=== PATIENT | male | born 1965 | race Caucasian/White ===

== ENCOUNTER 2019-09-18 13:15 | Emergency (ER) | payer BC, SELFPAY ==
--- NOTE | ~2019-09-18 | CT_ITS ---
EXAMINATION: CT brain wo con, CT cervical spine wo con EXAM DATE: 09/18/2019 14:22 INDICATION: Fall, head injury, left-sided TECHNIQUE: Spiral CT of the head was performed without contrast. Axial, coronal and sagittal images were reviewed. Spiral CT of the cervical spine was performed without contrast. Axial images were rev iewed. Coronal and sagittal reformatted images were also reviewed. The dose-length product (DLP) fo r this examination was 605.33 (accession [id number]), 463.61 (accession [id number]) mGy-cm. The exposure was tailored according to patient size, and iterative reconstruction (ASIR) was used as additional dose reduction technique. There is no prior study for comparison. FINDINGS: HEAD CT: There is no acute intraparenchymal hemorrhage. No evidence of intraparenchymal brain mass l esion. No evidence of acute infarction. There is no mass effect or midline shift. There is no obstru ctive hydrocephalus suspected. There are no extra-axial collections. There are no acute calvarial f ractures. The orbits are unremarkable. Soft tissue is unremarkable. The visualized sinuses and mas toid air cells are well aerated. CERVICAL CT: Straightening of normal cervical lordosis could be positional or spasm. There is no evid ence of acute cervical fracture. The odontoid process is intact. Pre-dens space is normal. Prevert ebral soft tissue is normal. There are no soft tissue abnormalities identified. There is no disc sp marcello widening or traumatic vertebral body subluxation suspected. Mild cervical disc disease. There is moderate right C2-3 facet arthropathy and neural foraminal stenosis. Otherwise relatively mild arthr opathy. A detailed level by level evaluation of spondylosis can be added as addendum if requested. IMPRESSION: 1. No acute intracranial or cervical findings. Reviewed, dictated and finalized at location A. TRONIC DRAFTER IMPRESSION: 1. No acute intracranial or cervical findings.
[2019-09-18 13:32] VITALS: BP 153/80; PULSE 74; RESP 18; TEMP 36.3; O2SAT 99
--- NOTE | 2019-09-18 14:00 | ED.FALL ---
HPI - Fall General Chief Complaint: Fall Stated Complaint: headache Time Seen by Provider: 09/18/19 13:55 Source: patient and RN notes reviewed Mode of arrival: other Limitations: no limitations History of Present Illness HPI Narrative: Pt is a 53 y/o male who presents to the ED with c/o a fall that occurred Tuesday (09/14/19) night. Pt states that he slipped on his tile floor. Pt reports a posterior head injury. Pt denies syncope. He states that he fell asleep after his fall and that his monitored him while he was sleeping. Pt also reports a headache that began yesterday, blurred vision, and neck soreness pain, but denies increased weakness, and SOB. Pt denies taking any anticoagulants. complaint: fall Onset (ago): day(s) (4) Fall from: standing Place fall occurred: home Loss of consciousness: none Prolonged down time: no Symptoms prior to fall: none Context: tripped/slipped Location of injury: head Associated symptoms (after fall): headache (that began yesterday), neck pain (soreness) and other (blurred vision) Related Data Home Medications Medication Instructions Recorded Confirmed montelukast 10 mg tablet 10 mg PO DAILY 07/13/19 07/13/19 pantoprazole 40 mg tablet,delayed 40 mg PO DAILY tablet 07/13/19 07/13/19 release prednisone 5 mg tablet 5 mg PO DAILY 07/13/19 07/13/19 pyridostigmine bromide 60 mg tablet 60 mg PO QID 07/13/19 07/13/19 rosuvastatin 20 mg tablet 20 mg PO DAILY 07/13/19 07/13/19 Allergies Allergy/AdvReac Type Severity Reaction Status Date / Time No Known Allergies Allergy Verified 07/13/19 14:29 Review of Systems Review of Systems: All systems reviewed & are unremarkable except as noted in HPI and below Eyes: Eyes: Reports change in vision (blurred vision) Respiratory: Respiratory: Denies dyspnea Musculoskeletal: Musculoskeletal: Reports neck pain (soreness) Neurologic: Denies syncope, Reports headache(s) (that began yesterday) and Denies weakness (increased) [facility] Past Medical History Medical History (Updated 09/18/19 @ 14:48 by Herminia Cramer MD) Diverticulosis GERD (gastroesophageal reflux disease) GI bleed Headache, migraine History of rectal polyps Hyperlipidemia Hypertension Myasthenia gravis Pneumonia Surgical History Surgical History (Updated 09/18/19 @ 14:25 by Merly Phillips) H/O colonoscopy removing rectal polyps H/O right knee surgery History of elbow surgery History of surgery on right wrist History of thymectomy Family History Family History (Updated 07/13/19 @ 14:04 by Milagros Pavon [facility]) Father Rheumatoid arthritis Heart disease Mother Hypertension Heart disease Social History Social History (Updated 09/18/19 @ 14:25 by Merly Phillips) Smoking status: Former smoker Tobacco type: cigarettes Alcohol intake: current Exam Narrative: Exam Narrative: GENERAL: Well-appearing, well-nourished, and in no acute distress. HEAD: Normocephalic, left parietal scalp hematoma EYES: PERRLA and EOMI, conjunctiva clear without discharge THROAT:Mucous membranes moist, Oropharynx normal without erythema, exudate, peritonsillar swelling or fluctuance NECK: Supple, without lymphadenopathy or mass, midline tenderness cervical spine RESPIRATORY: No respiratory distress, Airway patent, Respirations non-labored, EXTREMITIES: No edema, normal strength with full range of motion. SKIN: Warm, dry, normal color without rash NEURO: Alert and oriented x3. CN 2-12 grossly intact. No focal deficits. PSYCH: Normal mood and affect. Course Vital Signs Vital signs: Vital Signs Temperature 97.4 F L 09/18/19 13:32 Pulse Rate 74 09/18/19 13:32 Respiratory Rate 18 09/18/19 13:32 Blood Pressure 153/80 H 09/18/19 13:32 Pulse Oximetry 99 09/18/19 13:32 Temperature 99.4 F 09/18/19 14:56 Pulse Rate 78 09/18/19 14:56 Respiratory Rate 09/18/19 14:56 Blood Pressure 147/94 H 09/18/19 14:56 Pulse Ox
[2019-09-18 14:56] VITALS: BP 147/94; PULSE 78; RESP 20; TEMP 37.4; O2SAT 95
== END 2019-09-18 14:57 | disposition home or self-care (01) ==
PROVIDERS: Emergency Provider General Practice; PCP Internal Medicine
DX: S06.0X0A Concussion without loss of consciousness, initial encounter (principal); K57.90 Diverticulosis of intestine, part unspecified, without perforation or abscess without bleeding; K21.9 Gastro-esophageal reflux disease without esophagitis; I10 Essential (primary) hypertension
CPT/HCPCS: 70450; 72125; 99284

== ENCOUNTER 2020-07-26 09:31 | Emergency (ER) | payer BC, SELFPAY ==
--- NOTE | ~2020-07-26 | XR_ITS ---
EXAMINATION: XR ribs LT 2V w CXR 2V EXAM DATE: 07/26/2020 11:02 INDICATION: Left lateral rib pain, fall one day ago. Bruising mid back. Initial encounter. TECHNIQUE: Frontal projection of the upper left ribs, frontal projection of the lower left ribs, obli que projection of the left ribs, frontal and lateral chest x-ray(s) for interpretation. Comparison is made to prior examination from 04/26/2019. FINDINGS: There is age indeterminate nondisplaced fracture suspected at the left 6th rib anteriorly. This finding has been indicated, marked on the examination for review, clinical correlation no other suspicious findings.. Sternotomy wires are present without findings to suggest sternal dehiscence. No confluent consolidation, pneumothorax or pleural effusion suspected. IMPRESSION: Probable nondisplaced left 6th rib fracture, age indeterminate. This is anterior aspect, and reportedly patient symptoms or posterior. Please clinically correlate. Reviewed, dictated and finalized at location A. P LAB TECHNICIAN IMPRESSION: Probable nondisplaced left 6th rib fracture, age indeterminate. Thi s is anterior aspect, and reportedly patient symptoms or posterior. Please clin ically correlate.
[2020-07-26 09:37] VITALS: BP 132/77; PULSE 80; RESP 18; TEMP 36.7; O2SAT 96
--- NOTE | 2020-07-26 10:36 | ED.FALL ---
HPI - Fall General Chief Complaint: Fall <Latisha Lucas PA-C - Last Filed: 07/26/20 12:09> Stated Complaint: left rib cage pain <LIBBY Golden Last Filed: 07/26/20 12:09> Time Seen by Provider: 07/26/20 10:12 <LIBBY Golden Last Filed: 07/26/20 12:09> Source: patient <LIBBY Golden Last Filed: 07/26/20 12:09> Mode of arrival: ambulatory <LIBBY Golden Last Filed: 07/26/20 12:09> Limitations: no limitations <LIBBY Golden Last Filed: 07/26/20 12:09> History of Present Illness HPI Narrative: This is a 54-year-old male that presents the emergency department after a fall last night with rib pain. Reports he slipped in the shower. Reports hitting his left side on the tub. Reports since he has had rib pain that is worse with movement and deep breathing. Denies hitting his head, loss of consciousness, other injuries, weakness, or numbness. <LIBBY Golden Last Filed: 07/26/20 12:09> Related Data Home Medications: Home Medications Medication Instructions Recorded Confirmed prednisone 5 mg tablet 5 mg PO DAILY 07/13/19 04/08/20 pyridostigmine bromide 60 mg tablet 60 mg PO QID 07/13/19 04/08/20 rosuvastatin 20 mg tablet 20 mg PO DAILY 07/13/19 04/08/20 aspirin 81 mg tablet,delayed 81 mg PO DAILY 04/08/20 04/08/20 release ticagrelor [Brilinta] mg 07/26/20 07/26/20 <ILBBY Golden Last Filed: 07/26/20 12:09> Allergies/Adverse Reactions: Allergies Allergy/AdvReac Type Severity Reaction Status Date / Time No Known Allergies Allergy Verified 07/26/20 09:41 <LIBBY Golden Last Filed: 07/26/20 12:09> Review of Systems Review of Systems: Narrative: CONSTITUTIONAL: Denies fever CARDIOVASCULAR: Reports chest/rib pain RESPIRATORY: Denies dyspnea. MUSCULOSKELETAL: Reports back pain, joint pain, and myalgia. NEUROLOGIC: Denies numbness, or weakness. <Latisha Lucas PA-C - Last Filed: 07/26/20 12:09> All systems reviewed & are unremarkable except as noted in HPI and below <Latisha Lucas PA-C - Last Filed: 07/26/20 12:09> PMFSH Past Medical History Medical History: Medical History (Updated 07/26/20 @ 12:07 by Latisha Lucas PA-C) Diverticulosis GERD (gastroesophageal reflux disease) GI bleed Headache, migraine History of rectal polyps Hyperlipidemia Hypertension Myasthenia gravis Pneumonia <Latisha Lucas PA-C - Last Filed: 07/26/20 12:09> Surgical History Surgical History: Surgical History (Updated 09/18/19 @ 14:25 by Merly Phillips) H/O colonoscopy removing rectal polyps H/O right knee surgery History of elbow surgery History of surgery on right wrist History of thymectomy <Latisha Lucas PA-C - Last Filed: 07/26/20 12:09> Family History Family History: Family History (Updated 07/13/19 @ 14:04 by Milagros Pavon [facility]) Father Rheumatoid arthritis Heart disease Mother Hypertension Heart disease <Latisha Lucas PA-C - Last Filed: 07/26/20 12:09> Social History Social History: Social History (Updated 09/18/19 @ 14:25 by Merly Phillips) Smoking status: Former smoker Tobacco type: cigarettes Alcohol intake: current <Latisha Lucas PA-C - Last Filed: 07/26/20 12:09> Exam Narrative: Exam Narrative: GENERAL: Well-appearing, well-nourished, and in no acute distress. HEAD: Normocephalic, atraumatic. EYES: PERRLA and EOMI. ENT: Nares clear, no rhinorrhea or epistaxis. Mucous membranes moist. Oropharynx without tonsillar hypertrophy exudate or other lesions. NECK: Supple. No adenopathy or masses. No midline cervical spine tenderness CHEST: Clear to auscultation. No respiratory distress. No wheezes rales or rhonchi. Tender to palpation of the left lateral, lower chest wall HEART: Regular rate and rhythm. No murmur heard. Normal peripheral pulses. BACK: No midline thoracic or lumbar spine tenderness EXTREMITIES
[2020-07-26] MEDS: HYDROcodone/acetaminophen (*CRX) 5-325 MG TABLET 1 TAB PO (10:39)
[2020-07-26 11:09] VITALS: TEMP 36.7
== END 2020-07-26 13:10 | disposition home or self-care (01) ==
PROVIDERS: Emergency Provider General Practice; PCP Internal Medicine
DX: S22.32XA Fracture of one rib, left side, initial encounter for closed fracture (principal); K21.9 Gastro-esophageal reflux disease without esophagitis; Z87.19 Personal history of other diseases of the digestive system; G70.00 Myasthenia gravis without (acute) exacerbation; I10 Essential (primary) hypertension; E78.5 Hyperlipidemia, unspecified; Z87.891 Personal history of nicotine dependence; W18.2XXA Fall in (into) shower or empty bathtub, initial encounter
CPT/HCPCS: 71046; 71100; 99283; A9270

== ENCOUNTER 2022-07-02 01:03 | Day surgery (SDC) | payer BC, SELFPAY ==
[2022-06-16 13:45] VITALS: BMI 31.4
[2022-07-02 08:00] VITALS: BP 138/89; PULSE 51; RESP 18; TEMP 36.3; O2SAT 98
[2022-07-02] MEDS: LACTATED RINGERS 1,000 ML 150 ML IV CONT (08:10)
--- NOTE | 2022-07-02 08:27 | PM.HPGS ---
History of Present Illness History of Present Illness Consent: Risks, benefits, and alternatives have been discussed and questions answered. Patient agrees to proceed with procedure. Chief complaint: neoplasm screening, hx colon polyps Narrative: Isidro Pierson is a 56 year old male Presents for screening colonoscopy. Patient has a history of a tubulovillous adenoma removed from the colon in 2017. Patient reports his current weight appetite and bowel movements are normal. Patient denies abdominal pain. She has had no bleeding. Family history is noncontributory. Review of Systems Review of Systems: Review of systems noncontributory. [facility] Past Medical History Medical History (Updated 07/02/22 @ 08:28 by Paras Tomas MD) Diverticulosis GERD (gastroesophageal reflux disease) GI bleed Headache, migraine History of rectal polyps Hyperlipidemia Hypertension Myasthenia gravis Pneumonia Surgical History Surgical History (Updated 09/18/19 @ 14:25 by Merly Phillips) H/O colonoscopy removing rectal polyps H/O right knee surgery History of elbow surgery History of surgery on right wrist History of thymectomy Family History Family History (Updated 07/13/19 @ 14:04 by Milagros Pavon [employer]) Father Rheumatoid arthritis Heart disease Mother Hypertension Heart disease Social History Social History (Updated 09/18/19 @ 14:25 by Merly Phillips) Smoking status: Former smoker Tobacco type: cigarettes Alcohol intake: current Drinks per week: 15 Substance use type: does not use Living arrangements: with family Spiritual care concerns: No Meds Home Medications and Allergies Home Medications Medication Instructions Recorded Confirmed Type prednisone 5 mg tablet 5 mg PO DAILY 07/13/19 06/16/22 History pyridostigmine bromide 60 mg tablet 60 mg PO TID 07/13/19 06/16/22 History lisinopril 10 mg tablet 10 mg PO DAILY #90 tabs 03/07/20 06/16/22 Rx aspirin 81 mg tablet,delayed 81 mg PO DAILY 04/08/20 06/16/22 History release (Adult Aspirin Regimen) sodium,potassium,mag sulfates 17.5 See Rx Instructions PO .COMPLEX 05/11/22 Rx gram-3.13 gram-1.6 gram oral soln #354 mL (Suprep Bowel Prep Kit) atenolol 25 mg tablet 25 mg PO DAILY 06/16/22 07/02/22 History azathioprine 50 mg tablet 50 mg PO DAILY 06/16/22 06/16/22 History montelukast 10 mg tablet 10 mg PO DAILY 06/16/22 06/16/22 History nitroglycerin 0.4 mg sublingual 0.4 mg sublingual PRN PRN Chest 06/16/22 06/16/22 History tablet Pain rosuvastatin 40 mg tablet 40 mg PO DAILY 06/16/22 06/16/22 History Allergies Allergy/AdvReac Type Severity Reaction Status Date / Time No Known Allergies Allergy Verified 07/02/22 07:59 Vital Signs Vital Signs - 24 hr 07/02/22 08:00 Temperature 97.3 F L Pulse Rate 51 L Respiratory Rate 18 Blood Pressure 138/89 Pulse Oximetry 98 Oxygen Delivery Room Air Exam Narrative: Physical exam reveals patient to be alert. Vital signs stable. HEENT exam is unremarkable. Patient is anicteric. Lungs are clear to auscultation and percussion. Heart is without murmur or extra sounds. Abdomen bowel sounds present soft nontender with no organomegaly. Digital external rectal exam is normal. Assessment and Plan Assessment and plan (1) History of colon polyps: Code(s): Z86.010 - Personal history of colonic polyps Status: Acute Assessment and Plan: Patient has a history of a tubulovillous adenomatous colon polyp removed from the colon 2016. Plan for surveillance colonoscopy at this time. Consider follow-up colonoscopy at 5 year intervals in the future. Further recommendations may be given after endoscopy.
--- NOTE | 2022-07-02 08:29 | WPDANESEPPF ---
Anes - Initial Pre Proc Eval Procedure: Operation Date: 07/02/22 09:00 Proposed Procedures p Screening Colonoscopy - Paras Tomas MD Date/Time: 07/02/22 08:29 Surgeon: Paras Tomas MD Pre Op Diagnosis: neoplasm screening, hx colon polyps Patient Data Age: 56 Gender: M Height: 1.7 m Weight: 90.9 kg Last Vital Signs Temp 36.3 C L 07/02/22 08:00 Pulse 51 L 07/02/22 08:00 Resp 18 07/02/22 08:00 BP 138/89 07/02/22 08:00 Pulse Ox 98 07/02/22 08:00 O2 Del Method Room Air 07/02/22 08:00 Allergies Allergy/AdvReac Type Severity Reaction Status Date / Time No Known Allergies Allergy Verified 07/02/22 07:59 Home Medications Medication Instructions Recorded Confirmed Type prednisone 5 mg tablet 5 mg PO DAILY 07/13/19 06/16/22 History pyridostigmine bromide 60 mg tablet 60 mg PO TID 07/13/19 06/16/22 History lisinopril 10 mg tablet 10 mg PO DAILY #90 tabs 03/07/20 06/16/22 Rx aspirin 81 mg tablet,delayed 81 mg PO DAILY 04/08/20 06/16/22 History release (Adult Aspirin Regimen) sodium,potassium,mag sulfates 17.5 See Rx Instructions PO .COMPLEX 05/11/22 Rx gram-3.13 gram-1.6 gram oral soln #354 mL (Suprep Bowel Prep Kit) atenolol 25 mg tablet 25 mg PO DAILY 06/16/22 07/02/22 History azathioprine 50 mg tablet 50 mg PO DAILY 06/16/22 06/16/22 History montelukast 10 mg tablet 10 mg PO DAILY 06/16/22 06/16/22 History nitroglycerin 0.4 mg sublingual 0.4 mg sublingual PRN PRN Chest 06/16/22 06/16/22 History tablet Pain rosuvastatin 40 mg tablet 40 mg PO DAILY 06/16/22 06/16/22 History Patient hx anesthesia problems: none Family hx anesthesia problems: none Results Review: All pre-operative results and documents have been reviewed as part of the pre-operative evaluation. [facility] Past Medical History Medical History Diverticulosis GERD (gastroesophageal reflux disease) GI bleed Headache, migraine History of rectal polyps Hyperlipidemia Hypertension Myasthenia gravis Pneumonia Surgical History Surgical History H/O colonoscopy removing rectal polyps H/O right knee surgery History of elbow surgery History of surgery on right wrist History of thymectomy Family History Family History Father Rheumatoid arthritis Heart disease Mother Hypertension Heart disease Social History Social History Smoking status: Former smoker Tobacco type: cigarettes Alcohol intake: current Drinks per week: 15 Substance use type: does not use Living arrangements: with family Spiritual care concerns: No Anes - Eval Final PreProcedure Day of Procedure 07/02/22 08:29 Patient weight: obese Heart: regular rate and rhythm Lungs: clear to auscultation Airway: Mallampati scale class II Neurological: alert and oriented Last oral intake: >/= 8 hours ASA classification: III Emergent: no Anesthetic plan: proceed Anesthesia type and monitoring: general GIVS and standard monitoring Results Review: All pre-operative results and documents have been reviewed as part of the pre-operative evaluation. Informed Consent: The patient's anesthetic plan and its attendant risks and benefits were discussed with the patient/family/POA. Questions were solicited and answers provided to the satisfaction of the patient/family/POA.
[2022-07-02 09:21] VITALS: BP 117/93; PULSE 51; RESP 17; O2SAT 99
[2022-07-02 09:31] VITALS: BP 123/77; PULSE 54; RESP 18; O2SAT 98
[2022-07-02 09:41] VITALS: BP 128/90; PULSE 60; RESP 20; O2SAT 97
== END 2022-07-02 09:55 | disposition home or self-care (01) ==
PROVIDERS: PCP Internal Medicine; Visit Provider Internal Medicine Gastroenterology
PROC: 0DJD8ZZ Inspection of Lower Intestinal Tract, Via Natural or Artificial Opening Endoscopic (ICD-10-PCS; CPT 45378; principal; 2022-07-02 09:00)
DX: Z12.11 Encounter for screening for malignant neoplasm of colon (principal); K64.8 Other hemorrhoids; K57.30 Diverticulosis of large intestine without perforation or abscess without bleeding; Z86.010 Personal history of colon polyps; I10 Essential (primary) hypertension; E78.5 Hyperlipidemia, unspecified; K21.9 Gastro-esophageal reflux disease without esophagitis; Z79.82 Long term (current) use of aspirin; Z87.891 Personal history of nicotine dependence; E66.9 Obesity, unspecified; Z68.31 Body mass index [BMI] 31.0-31.9, adult
CPT/HCPCS: 45378; J2704; J7120

== ENCOUNTER 2024-12-04 07:19 | Observation (INO) | payer BC, SELFPAY ==
[2024-12-04] VITALS (25 sets, daily range): BP systolic 82–128; BP diastolic 56–84; PULSE 49–71; RESP 11–96; TEMP 36–36.9; O2SAT 95–100; BMI 33.0; BMI 32.0
--- NOTE | ~2024-12-04 | CT_ITS ---
CT of the Abdomen and Pelvis: Indication: Hematuria Technique: 2.5 mm axial scans were obtained through the abdomen and pelvis prior to and following in travenous administration of 130 cc of Omnipaque 350. Dose reduction technique was used on this scan b y utilizing automated exposure control and iterative reconstruction technique. The dose-length produc t (DLP) was 1791.96 mGy-cm. Findings: Scans through the lung bases are unremarkable. The liver, spleen, pancreas, gallbladder, and adrenal glands are within normal limits. Probable punct ate nonobstructing left renal stone. Bilateral renal cysts are present. No evidence of aortic aneurys m. No lymphadenopathy. No bowel obstruction or bowel wall thickening. There is no evidence to suggest acute appendicitis. Images through the pelvis were performed. There is a 10.1 x 6.5 cm mobile mass within the bladder lum en, mildly hyperdense, most likely a large hematoma/blood clot. Prostate gland unremarkable. No ascit es. Impression: 10.1 x 6.5 cm probable blood clot/hematoma within the bladder lumen, mobile. Precise cause/source of this hematoma is unclear. Probable punctate nonobstructing left renal stone. Reviewed, dictated and finalized at location M. Impression: 10.1 x 6.5 cm probable blood clot/hematoma within the bladder lumen, mobile. Pr ecise cause/source of this hematoma is unclear. Probable punctate nonobstructing left renal stone.
--- OUTSIDE RECORDS SUMMARY | 2024-12-04 07:28 | XMS_ITS | Continuity of Care Document ---
Author Organization [facility] Address [address] [place] [address] Phone Care Team Providers Care Assessor Name Role Phone Huseyin Gilbert Unavailable Unavailable Procedures Procedure Date Eye Exam Established Pt Remove Foreign Body From Eye Office/outpatient Visit, Est Remove Foreign Body From Eye Advance Directives Directive Yes / No Effective Date File Name No Information Encounters Encounter Description Practice Location Reason(s) For Visit Diagnoses Date Provider Providers Copied on Encounter [facility], [address] [place] [address] [address], [place], [place], [id number], [place] tel:[phone] [facility] No Information 0 Ofelia Fontanez. [address] [place], [address], . tel:[phone] Referring Provider: Huseyin Howard, [address] [place], [place], [facility]. tel:[phone] [facility], [address], [place], [place], [id number], [place] tel:[phone] [facility] No Information 0 Val San. [address], [place], [address], [place]. tel:[phone] Office/outpat ient Visit, Est [facility], [address], [place], [place], [id number], [place] tel:[phone] [facility] No Information May-0 7-200 7 Fabio Huerta. [address], [place], [place], [id number], [place]. tel:[phone] [facility], [address], [place], [place], [id number], [place] tel:[phone] [facility] No Information May-0 1-200 7 Val San. [address], [place], [address], [place]. tel:[phone] Referring Provider: Tee Marcano MD, [address] [facility] [address], [place], [address]. tel:[phone] Family History Family Member Type Diagnosis Age At Onset No Information Payers Payer name Insurance type Covered libertarian ID Authoriza tion(s) No Information Social History Type Description Quantity Date Captured Comments Sex Male Smoking Status No Information Chief Complaint And Reason For Visit No Information Reason For Referral Reason For Referral No Information History Of Present Illness Encounter Date Complaint History Of Prese nt Illness No Information Functional Status Date Functional Assessmen t No Information Instructions Date Instruction Additional Infor mation No Information Assessments Type Assessment Date No Information Patient Care Teams Name Effective Dates (start - stop) Status Members No Information
--- OUTSIDE RECORDS SUMMARY | 2024-12-04 07:28 | XMS_ITS | Clinical Summary ---
Author Organization [facility] [address] Address [address] [place] [address] Care Team Providers Care Report Analyst Name Role Phone Franklin Lester MD Unavailable [phone] Higinio Billy MD Primary Care Provider [phone] Allergies No known active allergies Medications predniSONE (DELTASONE) 5 mg tablet Take 10 tablets (50 mg) by mouth daily 0 Active pyridostigmine (MESTINON) 60 mg tablet 4 (four) times a day Active aspirin 81 mg enteric coated tablet Take 1 tablet (81 mg total) by mouth daily Active fluticasone propionate (FLONASE) 50 mcg/actuation nasal spray Administer 2 sprays into each nostril daily 3 each 4 3 Active calcium carbonate 500 mg calcium (1,250 mg) capsule Take by mouth daily Active icosapent ethyL (VASCEPA) 1 gram capsule Take 2 capsules (2 g total) by mouth 2 (two) times a day 120 capsule 11 4 025 Active immune globulin (Gamunex-C) infusion Infuse 917 mL (91.7 g total) into a venous catheter 4 Active montelukast (SINGULAIR) 10 mg tablet Take 1 tablet (10 mg total) by mouth daily 90 tablet 3 4 025 Active rosuvastatin (CRESTOR) 40 mg tabletIndications: Essential hypertension,[place]on [place]win artery disease involving [place] coronary artery of [place] heart without angina pectoris,Mixed hyperlipidemia TAKE 1 TABLET BY MOUTH EVERY DAY 90 tablet 1 5 Active atenoloL (TENORMIN) 25 mg tabletIndications: Essential hypertension,[place]on [place] artery disease involving [place] coronary artery of [place] heart without angina pectoris,Mixed hyperlipidemia TAKE 1 TABLET (25 MG TOTAL) BY MOUTH DAILY. 90 tablet 1 5 Active lisinopriL (PRINIVIL,ZESTRIL) 10 mg tabletIndications: Essential hypertension,[place]on [place] artery disease involving [place] coronary artery of [place] heart without angina pectoris,Mixed hyperlipidemia TAKE 1 TABLET BY MOUTH EVERY DAY 90 tablet 1 5 Active Active Problems Problem Noted Date Diagnosed Date Screening for diabetes mellitus 07/13/2024 Screening for malignant neoplasm of prostate Screening for thyroid disorder 07/13/2024 Class 1 obesity with serious comorbidity and body mass index (BMI) of 32.0 to 32.9 in adult 07/13/2024 Assessment & Plan (07/13/2024 4:09 PM DROP WIRE HANGER): BMI 32.60. Discussed need for healthy diet, routine exercise and weight loss Class 1 obesity due to exces s calories without serious comorbidity with body mass index (BMI) of 33.0 to 33.9 in adult 07/12/2023 Assessment & Plan (01/11/2024 2:57 PM CDT): Stable, improving; patient had some Suboxone weight due to increased dose of prednisone Patient now back down to prednisone 5 mg daily; continues to work on weight loss Assessment & Plan (07/12/2023 1:36 PM DROP WIRE HANGER): Patient continues to gain weight; limited ability exercise due to myasthenia gravis, limiting as energy levels in the evening Patient on chronic prednisone for myasthenia gravis Will start semaglutide 0.25 mg to help with weight control Nausea, vomiting, and diarrhea 01/18/2023 Assessment & Plan (01/18/2023 11:23 AM CDT): Nine history of abdominal pain and N/V/D Obtain x-ray at [facility]-will call with results Myasthenia gravis 01/03/2023 Assessment & Plan (01/11/2024 2:57 PM CDT): Stable, well controlled; has taper down to 5 mg prednisone daily; pyridostigmine 60 mg q.i.d.; continue to monitor Patient reports worsening symptoms associated with feet, tries to stay in air conditioning as much as possible Assessment & Plan (10/05/2023 12:35 PM DROP WIRE HANGER): Had episode of weakness and collapse, improvement with methylprednisone Symptoms are now improving after fall Continue pyridostigmine 60 mg q.i.d., can taper down stabilizes Assessment & Plan (07/12/2023 1:36 PM DROP WIRE HANGER): Stable, generally well controlled, the patient does report he had recent flare over the summer requiring higher doses of prednisone Follows with Neurology for management Continue pyridostigmine 60 mg t.i.d., prednisone 15 mg daily Assessment & Plan (01/03/2023 3:10 PM CDT): Stable, generally well controlled, follows with Dr. Rogers Symptoms are worsening stream hot or cold Continue prednisone 5 mg daily, pyridostigmine 60 mg t.i.d. Non-seasonal allergic rhinitis due to pollen 11/2022 Assessment & Plan (07/13/2024 4:15 PM DROP WIRE HANGER): Continue use of fluticasone. Assessment & Plan (01/03/2023 3:10 PM CDT): Stable, generally well controlled; continue Singulair 10 mg daily, Benadryl p.r.n. Flonase 2 sprays each nostril nightly H/O heart artery stent 12/09/2022 Mixed hyperlipidemia 12/09/2022 Assessment & Plan (01/03/2023 3:09 PM CDT): Stable, well controlled, follows with Cardiology Continue rosuvastatin 40 mg daily Coronary artery disease 05/29/2020 Assessment & Plan (07/13/2024 4:20 PM DROP WIRE HANGER): Stable. Continue ASA, atenolol, lisinopril, rosuvastatin, and Vascepa. Followed by cardiology. Assessment & Plan (01/11/2024 2:57 PM CDT): Stable, well controlled, continue ASA 81 mg daily, atenolol 25 mg daily, rosuvastatin 40 mg daily Assessment & Plan (10/05/2023 12:35 PM DROP WIRE HANGER): Stable, well controlled; no chest pain or evidence of cardiac enzymes Continue ASA 81 mg daily, atenolol 25 mg daily, lisinopril 10 mg daily, rosuvastatin 40 mg daily Assessment & Plan (07/12/2023 1:35 PM DROP WIRE HANGER): Stable, well controlled; no chest pain headaches, no changes in exercise tolerance outside of changes from myasthenia gravis Continue ASA 81 mg daily, atenolol 25 mg daily, lisinopril 10 mg daily, rosuvastatin 40 mg daily Assessment & Plan (01/03/2023 3:09 PM CDT): Stable, well controlled; stent placed, patient reports no chest pain, dyspnea or peripheral edema continue to monitor closely Follows with Cardiology for management Continue nitroglycerin p.r.n. for chest pain, ASA 81 mg daily Chest pain 05/06/2020 Essential hypertension 05/06/2020 Assessment & Plan (01/11/2024 2:56 PM CDT): Stable, well controlled, blood pressure at goal No chest pain or pressure No orthostatics Continue atenolol 25 mg daily, lisinopril 10 mg daily Assessment & Plan (07/12/2023 1:34 PM DROP WIRE HANGER): Mildly elevated today; though blood pressure generally normal Continue to monitor closely Continue atenolol 25 mg daily, lisinopril 10 mg daily Assessment & Plan (01/03/2023 3:08 PM CDT): Stable, well controlled; blood pressure at target today Continue atenolol 25 mg daily, lisinopril 10 mg daily Dyspnea on exertion 05/06/2020 Degeneration of cervical intervertebral disc 01/201101/03/2023 Assessment & Plan (01/11/2024 2:57 PM CDT): Stable, well controlled; no major issues with neck pain, occasional stiff neck Assessment & Plan (07/12/2023 1:35 PM DROP WIRE HANGER): Generally well controlled, no major issues, has some low back pain and sciatic pain on left side associated with sitting for long durations in chair Encourage use of soft chairs, regular activity during day Resolved Problems Problem Noted Date Diagnosed Date Resolved Date Pure hypercholesterolemia 05/06/2020 Assessment & Plan (01/11/2024 2:56 PM CDT): Stable, well controlled, lipids at goal Continue rosuvastatin 40 mg daily Assessment & Plan (07/12/2023 1:35 PM DROP WIRE HANGER): Stable, well controlled; mildly elevated triglycerides, LDL at goal Continue rosuvastatin 40 mg daily Immunizations Immunization Administration Dates Next Due Influenza, Quadrivalent, Spl it, Preservative Free, Intramuscular 07/13/2022,05/31/2021,05/17/2020,04/26 Influenza, Trivalent, Preser vative Free, Intramuscular 05/17/2024,05/23/2013 Influenza, Unspecified 04/21/2023 Surgical History Surgery Date Site/Laterality Comments TENODESIS BICEPS TENDON AT [facility] THYROIDECTOMY 08/01/1999 - 07/31/2000 N/A HM COLONOSCOPY Medical History Medical History Date Comments Chest pain Diverticulitis Family History Medical History Relation Name Comments Coronary artery disease Father bypass Father Stent Mother Relation Name Status Comments Father Mother Alive Social History Tobacco Use Types Packs/Day Years Used Date Smoking Tobacco: Former Smokeless Tobacco: Never Tobacco Cessation:Counseling Given: Not Answered Alcohol Use Standard Drinks/Week Comments Not Currently 0 (1 standard drink = 0.6 oz pur e alcohol) [facility] Utilities Answer Date Recorded In the past 12 months has [employer], oil, or [employer] threatened to shut off services in your home? No 07/12/2023 Humiliation, Afraid, Rape, and Kick questionnair e Answer Date Recorded Within the last year, have y ou been afraid of your partner or ex-partner? No 07/12/2023 Within the last year, have y ou been humiliated or emotionally abused in other ways by your partner or ex-partner? No Within the last year, have y ou been kicked, hit, slapped, or otherwise physically hurt by your partner or ex-partner? No 07/12/2023 Within the last year, have y ou been raped or forced to have any kind of sexual activity by your partner or ex-partner? No 07/12/2023 Social Connection and Isolat ion Panel [NHANES] Answer Date Recorded In a typical week, how many times do you talk on the phone with family, friends, or neighbors? More than three times a week 07/12/2023 How often do you get togethe r with friends or relatives? More than three times a week 07/12/2023 How often do you attend [facility] or jainism services? Never 07/12/2023 Do you belong to any clubs o r organizations such as latter day groups, unions, fraternal or athletic groups, or school groups? No 07/12/2023 How often do you attend meet ings of the clubs or organizations you belong to? Never 07/12/2023 Are you , , di vorced, , never , or living with a partner? 07/12/2023 AUDIT-C Answer Date Recorded Q1: How often do you have a drink containing alcohol? 4 or more times a week 07/12/2023 Q2: How many drinks containi ng alcohol do you have on a typical day when you are drinking? 1 or 2 3 Q3: How often do you have si x or more drinks on one occasion? Weekly 07/12/2023 Overall Financial Resource Strain (CARDIA) Answe r Date Recorded How hard is it for you to pa y for the very basics like food, housing, medical care, and heating? Not hard at all 07/12/2023 PHQ-2 Answer Date Recorded PHQ-2 Total Score (If total score is 3 or more points, staff should administer the PHQ-9) 0 01/11/2024 [facility] of Occupat ional Health - Occupational Stress Questionnaire Answer Date Recorded Do you feel stress - tense, restless, nervous, or anxious, or unable to sleep at night because your mind is troubled all the time - these days? To some extent 07/12/2023 Exercise Vital Sign Answer Date Recorde d On average, how many days pe r week do you engage in moderate to strenuous exercise (like a brisk walk)? 0 days 07/12/2023 On average, how many minutes do you engage in exercise at this level? 0 min 07/12/2023 Hunger Vital Sign Answer Date Recorded Within the past 12 months, y ou worried that your food would run out before you got the money to buy more. Never true 07/12/20 23 Within the past 12 months, t he food you bought just didn't last and you didn't have money to get more. Never true 07/12/2023 PRAPARE - Transportation Answer Date Re corded In the past 12 months, has l ack of transportation kept you from medical appointments or from getting medications? No 07/01 In the past 12 months, has l ack of transportation kept you from meetings, work, or from getting things needed for daily living? No 07/12/2023 Housing Stability Vital Sign Answer Wilfred e Recorded In the last 12 months, was t here a time when you were not able to pay the mortgage or rent on time? No 07/12/2023 In the last 12 months, how many places have you lived? 1 07/12/2023 In the last 12 months, was t here a time when you did not have a steady place to sleep or slept in a alf (including now)? No 07/12/2023 Sex and Gender Information Value Date Recorded Sex Assigned at Not on file Legal Sex Male 1:56 AM DROP WIRE HANGER Gender Identity Not on file Sexual Orientation Not on file Obstetrics History Last Filed Vital Signs Vital Sign Reading Time Taken Comments Blood Pressure 126/80 07/13/2024 8:25 AM DROP WIRE HANGER Pulse 76 07/13/2024 8:25 AM DROP WIRE HANGER Temperature 36.4 C (97.6 F) 07/13/2024 8:25 AM DROP WIRE HANGER Respiratory Rate 18 01/11/2024 1:57 PM CDT Oxygen Saturation 94% 07/13/2024 8:25 AM DROP WIRE HANGER Inhaled Oxygen Concentration - - Weight 94.4 kg (208 lb 3.2 oz) 07/13/2024 8:25 A M DROP WIRE HANGER Height 170.2 cm (5' 7.01 ) 07/13/2024 8:25 AM CS T Body Mass Index 32.6 07/13/2024 8:25 AM DROP WIRE HANGER Plan of Treatment Health Maintenance Due Date Last Done Comments DTaP/Tdap/Td Vaccine (1 - Tdap) 1976 Regular Well Visit/Exam 18-64 10/11/1983 Pneumococcal vaccine <65 (1 of 2 - PCV) 1984 Covid-19 Vaccine (2023- season) 2024 05/22/2022, 05/31/2021, 10/14/2020, Additional history exists Depression Screening 01/10/2025 01/11/2024, 07/12/2023, 07/12/2023, Additional history exists Zoster Vaccine (1 of 2) 07/13/2025 Post poned from 1984 (Patient declined, but will receive in the future) Prostate Cancer Screening-PSA 07/13/2026 07/13/2024, 07/12/2023 Colon Cancer Screening-Colonoscopy 07/02/2027 07/02/2022 Colon Cancer Screening-CT Colonography Discontinued 07/02/2022 Colon Cancer Screening-DNA Stool Discontinued 07/02/2022 Colon Cancer Screening-FIT Discontinued 07/02/2022 Colon Cancer Screening-Sigmoidoscopy Discontinued 07/02/2022 Hepatitis B Screening Completed 01/12/2024 Hepatitis C Screening Completed 01/12/2024 Influenza Vaccine Completed 05/17/2024, , 07/13/2022, Additional history exists Procedures Procedure Name Priority Date/Time Associated Diagnosis Comments PSA SCREEN Routine 07/13/2024 9:13 AM DROP WIRE HANGER Screening for malignant neoplasm of prostate HEPATITIS C ANTIBODY Routine 01/12/2024 10:00 AM CDT COLONOSCOPY Routine 07/02/2022 from Last 3 Months or Most Recently Relevant to Health Maintenance Results * PSA screen (07/13/2024 9:13 AM DROP WIRE HANGER) PSA-Total 2.82 <=3.90 ng/mL Comment: Interpretive Data AGE SEX REFERENCE INTERVAL 0 minutes-150 years Female None 0 minutes-49 years Male None 50-59 years Male 0-3.90 60-69 years Male 0-5.40 70-79 years Male 0-6.20 80-150 years Male 0-6.20 The Estephania PSA Total assay procedure was used. Results from different manufacturers or methods may not be comparable. Serial testing should be performed using the same method. Current interpretive data last revised 21. Blood 07/13/2024 9:13 AM DROP WIRE HANGER 07/13/2024 2:37 PM DROP WIRE HANGER Yulia Mcguire NP LAB BLOOD ORDERABLES Final Re sult [facility] [address] [place] [address] * Hepatitis C antibody (01/12/2024 10:00 AM CDT) Hep C Ab NON-REACTI VE NON-REACT GAYE [facility] Comment: HCV antibody was non-reactive. There is no laboratory evidence of HCV infection. In most cases, no further action is required. However, if recent HCV exposure is suspected, a test for HCV RNA (test code 78141) is suggested. For additional information please refer to http://education.WaveMAX.Men Rock/faq/ANX51e6 (This link is being provided for informational/ educational purposes only.) 01/12/2024 10:0 0 AM CDT 01/12/2024 10:02 AM CDT Higinio Billy MD LAB MICROBIOLOGY - GENERA L ORDERABLES Final Result [facility] [address] [address] * Colonoscopy (07/02/2022) Anatomical Region Laterality Modality Other us Historical Provider ENDOSCOPY PROCEDURES Asha l Result from Last 3 Months or Most Recently Relevant to Health Maintenance Insurance [employer] [place] [facility] [employer]ER[employer] Care Teams Report Analyst Relationship Specialty Start Date End Date Higinio Billy MD [address] [place] [address] PCP - General Family Medicine 12/09/22 Franklin Lester MD Internal Medicine 05/06/20
--- OUTSIDE RECORDS SUMMARY | 2024-12-04 07:29 | XMS_ITS | Referral Summary ---
Author Organization [facility] [address] Address [address] [place] [address] Care Team Providers Care Yard Switch Operator Name Role Phone Franklin Lester MD Unavailable [phone] Higinio Billy MD Primary Care Provider [phone] Allergies No known active allergies Medications predniSONE [...] tabletIndications: Essential hypertension,Coron [place]win artery disease involving [place] coronary artery of [place] heart without angina pectoris,Mixed hyperlipidemia TAKE 1 TABLET BY MOUTH EVERY DAY 90 tablet 1 5 Active atenoloL (TENORMIN) 25 mg tabletIndications: Essential hypertension,Coron ashwin artery disease involving [place] coronary artery of [place] heart without angina pectoris,Mixed hyperlipidemia TAKE 1 TABLET (25 MG TOTAL) BY MOUTH DAILY. 90 tablet 1 5 Active lisinopriL (PRINIVIL,ZESTRIL) 10 mg tabletIndications: Essential hypertension,Coron ashwin artery disease involving [place] coronary artery of [place] heart without angina pectoris,Mixed hyperlipidemia TAKE 1 [...] 07/13/2024 Assessment & Plan (07/13/2024 4:09 PM REBRANDER): BMI 32.60. Discussed need for healthy diet, [...] loss Assessment & Plan (07/12/2023 1:36 PM REBRANDER): Patient continues to gain weight; limited ability exercise due to myasthenia gravis, limiting as energy levels in the evening Patient on chronic prednisone for myasthenia gravis Will start semaglutide 0.25 mg to help with weight control Nausea, vomiting, and diarrhea 01/18/2023 Assessment & Plan (01/18/2023 11:23 AM CDT): Nine history of abdominal pain and N/V/D Obtain x-ray at [facility]-will call with results Myasthenia gravis 01/03/2023 Assessment & Plan (01/11/2024 2:57 PM CDT): Stable, well controlled; has taper down to 5 mg prednisone daily; pyridostigmine 60 mg q.i.d.; continue to monitor Patient reports worsening symptoms associated with feet, tries to stay in air conditioning as much as possible Assessment & Plan (10/05/2023 12:35 PM REBRANDER): Had episode of weakness and collapse, improvement with methylprednisone Symptoms are now improving after fall Continue pyridostigmine 60 mg q.i.d., can taper down stabilizes Assessment & Plan (07/12/2023 1:36 PM REBRANDER): Stable, generally well controlled, the patient does [...] 11/2022 Assessment & Plan (07/13/2024 4:15 PM REBRANDER): Continue use of fluticasone. Assessment & Plan [...] 05/29/2020 Assessment & Plan (07/13/2024 4:20 PM REBRANDER): Stable. Continue ASA, atenolol, lisinopril, rosuvastatin, and Vascepa. Followed by cardiology. Assessment & Plan (01/11/2024 2:57 PM CDT): Stable, well controlled, continue ASA 81 mg daily, atenolol 25 mg daily, rosuvastatin 40 mg daily Assessment & Plan (10/05/2023 12:35 PM REBRANDER): Stable, well controlled; no chest pain or evidence of cardiac enzymes Continue ASA 81 mg daily, atenolol 25 mg daily, lisinopril 10 mg daily, rosuvastatin 40 mg daily Assessment & Plan (07/12/2023 1:35 PM REBRANDER): Stable, well controlled; no chest pain headaches, [...] daily Assessment & Plan (07/12/2023 1:34 PM REBRANDER): Mildly elevated today; though blood pressure generally [...] neck Assessment & Plan (07/12/2023 1:35 PM REBRANDER): Generally well controlled, no major issues, has [...] daily Assessment & Plan (07/12/2023 1:35 PM REBRANDER): Stable, well controlled; mildly elevated triglycerides, LDL at goal Continue rosuvastatin 40 mg daily Immunizations Immunization Administration Dates Next Due Influenza, Quadrivalent, Spl it, Preservative Free, Intramuscular 07/13/2022,05/31/2021,05/17/2020,04/26 Influenza, Trivalent, Preser vative Free, Intramuscular 05/17/2024,05/23/2013 Influenza, Unspecified 04/21/2023 Social History Tobacco Use Types Packs/Day Years Used Date Smoking Tobacco: Former Smokeless Tobacco: Never Tobacco Cessation:Counseling Given: Not Answered Alcohol Use Standard Drinks/Week Comments Not Currently 0 (1 standard drink = 0.6 oz pur e alcohol) [facility] Utilities Answer Date Recorded In the past 12 months has e [employer]), gas, oil, or water [employer] threatened to shut off services in your [...] week 07/12/2023 How often do you attend chur or presybeterian services? Never 07/12/2023 Do you belong to any clubs o r organizations such as temple groups, unions, fraternal or athletic groups, or [...] staff should administer the PHQ-9) 0 01/11/2024 [facility] of Occupat ional Health - Occupational Stress [...] place to sleep or slept in a nursing home (including now)? No 07/12/2023 Sex and Gender Information Value Date Recorded Sex Assigned at Not on file Legal Sex Male 1:56 AM REBRANDER Gender Identity Not on file Sexual Orientation Not on file Last Filed Vital Signs Vital Sign Reading Time Taken Comments Blood Pressure 126/80 07/13/2024 8:25 AM REBRANDER Pulse 76 07/13/2024 8:25 AM REBRANDER Temperature 36.4 C (97.6 F) 07/13/2024 8:25 AM REBRANDER Respiratory Rate 18 01/11/2024 1:57 PM CDT Oxygen Saturation 94% 07/13/2024 8:25 AM REBRANDER Inhaled Oxygen Concentration - - Weight 94.4 kg (208 lb 3.2 oz) 07/13/2024 8:25 A M REBRANDER Height 170.2 cm (5' 7.01 ) 07/13/2024 8:25 AM CS T Body Mass Index 32.6 07/13/2024 8:25 AM REBRANDER Plan of Treatment Not on file Procedures Procedure Name Priority Date/Time Associated Diagnosis Comments PSA SCREEN Routine 07/13/2024 9:13 AM REBRANDER Screening for malignant neoplasm of prostate HEPATITIS C ANTIBODY Routine 01/12/2024 10:00 AM CDT COLONOSCOPY Routine 07/02/2022 from Last 3 Months or Most Recently Relevant to Health Maintenance Results * PSA screen (07/13/2024 9:13 AM REBRANDER) PSA-Total 2.82 <=3.90 ng/mL Comment: Interpretive Data [...] last revised 21. Blood 07/13/2024 9:13 AM REBRANDER 07/13/2024 2:37 PM REBRANDER us Yulia Mcguire NP LAB BLOOD ORDERABLES Final Re sult [facility] [address] [facility] [place] [address] * Hepatitis C antibody (01/12/2024 10:00 AM CDT) Hep C Ab NON-REACTI VE NON-REACT GAYE [facility] Comment: HCV antibody was non-reactive. There is no laboratory evidence of HCV infection. In most cases, no further action is required. However, if recent HCV exposure is suspected, a test for HCV RNA (test code 67583) is suggested. For additional information please refer to http://education.PlasmaSi/faq/XXN10b0 (This link is being provided for informational/ educational purposes only.) 01/12/2024 10:0 0 AM CDT 01/12/2024 10:02 AM CDT Higinio Billy MD LAB MICROBIOLOGY - GENERA L ORDERABLES Final Result [facility] [address] [place] [address] * Colonoscopy (07/02/2022) Anatomical Region Laterality Modality Other Historical Provider ENDOSCOPY PROCEDURES Asha l Result from Last 3 Months or Most Recently Relevant to Health Maintenance Insurance [facility] FEDERAL Care Teams Yard Switch Operator Relationship Specialty Start Date End Date Higinio Billy MD [address] [place] [address] PCP - General Family Medicine 12/09/22 Franklin Lester MD Internal Medicine 05/06/20
--- OUTSIDE RECORDS SUMMARY | 2024-12-04 07:29 | XMS_ITS | Encounter Summary ---
Author Organization [facility] Address [address] [place] [address] Phone Care Team Providers Care Embossing Machine Tender Name Role Phone Franklin Lester MD Primary Care Provider [phone] Higinio Billy MD Primary Care Provider [phone] Myron Lawson MD Unavailable [phone] Reason for Visit * Reason Comments Medication Refill Encounter Details Date Type Department Care Team (Late Contact Info) Description 05/16/2022 Refill [facility] - Neurology [facility] [address] [place] [address] Myron Lawson MD [address] [place] [address] Medication Refill Social History Tobacco Use Types Packs/Day Years Used Date Smoking Tobacco: Never Smokeless Tobacco: Never Alcohol Use Standard Drinks/Week Comments Yes 0 (1 standard drink = 0.6 oz pur e alcohol) occasional Sex and Gender Information Value Date Recorded Sex Assigned at Not on file 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 No / Unsure 05/03/2022 2:58 PM CDT documented as of this encounter Plan of Treatment Upcoming Encounters Date Type Department Care Team (Late st Contact Info) Description 01/07/2025 3:30 PM CDT Office Visit [facility] - [facility]rology - [place] [address] [place] [address] Myron Lawson MD [address] [place] [address] documented as of this encounter Visit Diagnoses Not on filedocumented in this encounter Care Teams Embossing Machine Tender Relationship Specialty Start Date End Date Franklin Lester MD PCP - General Internal Medicine 08/13/20 11/07/22 Higinio Billy MD [address] [place] [address] PCP - General Family Medicine 11/08/22 Myron Lawson MD [address] [place] [address] Consulting Physician Neurology 05/11/23 documented as of this encounter
--- OUTSIDE RECORDS SUMMARY | 2024-12-04 07:29 | XMS_ITS | Encounter Summary ---
Author Organization [facility] Address [address] [place] [address] Phone Care Team Providers Care Lacquer Pin Press Operator Name Role Phone Higinio Billy MD Primary Care Provider [phone] Myron Lawson MD Unavailable [phone] Reason for Visit * Reason Comments Medication Refill Encounter Details Date Type Department Care Team (Late st Contact Info) Description 05/13/2023 Refill [facility] - Neurology [facility] [address] [place] [address] Myron Lawson MD [address] [place] [address] Medication Refill Social History Tobacco Use Types Packs/Day Years Used Date Smoking Tobacco: Never Smokeless Tobacco: Never Alcohol Use Standard Drinks/Week Comments Yes 0 (1 standard drink = 0.6 oz pur e alcohol) occasional Sex and Gender Information Value Date Recorded Sex Assigned at Not on file 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 No / Unsure 05/12/2023 3:27 PM CDT documented as of this encounter Miscellaneous Notes * Telephone Encounter - Annetta Ware RN - 05/13/2023 7:55 AM CDT Medication failed the protocol, provider to review and approve the medication order if appropriate. Requested Prescriptions Pending Prescriptions Disp Refills predniSONE (DELTASONE) 5 MG Tablet [Pharmacy Med Name: PREDNISONE 5 MG TABLET] 90 Tablet 1 Sig: TAKE 1 TABLET BY MOUTH EVERY DAY Not Delegated - Corticosteroids Protocol Failed - 05/13/2023 1:02 AM Failed - This refill cannot be delegated Passed - Visit with relevant provider in past 12 months or upcoming 90 days Recent Visits Date Type Provider Dept 05/12/23 Office Visit Myron Lawson MD [facility] Neurology [facility] 11/08/22 Office Visit Myron Lawson MD [facility] Neurology [facility] Showing recent visits within past 365 days and meeting all other requirements Future Appointments No visits were found meeting these conditions. Showing future appointments within next 90 days and meeting all other requirements documented in this encounter Plan of Treatment Upcoming Encounters Date Type Department Care Team (Late st Contact Info) Description 01/07/2025 3:30 PM CDT Office Visit [facility] - Neurology [facility] [address] [place] [address] Myron Lawson MD [address] [place] [address] documented as of this encounter Visit Diagnoses Not on filedocumented in this encounter Care Teams Lacquer Pin Press Operator Relationship Specialty Start Date End Date Higinio Billy MD [address] [place] [address] PCP - General Family Medicine 11/08/22 Myron Lawson MD [address] [place] [address] Consulting Physician Neurology 05/11/23 documented as of this encounter
--- OUTSIDE RECORDS SUMMARY | 2024-12-04 07:29 | XMS_ITS | Encounter Summary ---
Author Organization [facility] Address [address] [place] [address] Phone Care Team Providers Care Customer Leader Name Role Phone Higinio Billy MD Primary Care Provider [phone] Myron Lawson MD Unavailable [phone] Reason for Visit * Reason Comments Medication Refill Encounter Details Date Type Department Care Team ([facility] Contact Info) Description 05/22/2023 Refill [facility] Neurology [facility] [address] [place] [address] Myron Lawson MD [address] [place] [address] Medication Refill Social History Tobacco Use Types Packs/Day Years Used Date Smoking Tobacco: Never Smokeless Tobacco: Never Alcohol Use Standard Drinks/Week Comments Yes 0 (1 standard drink = 0.6 oz pur e alcohol) occasional Sex and Gender Information Value Date Recorded Sex Assigned at Not on file Legal 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 No / Unsure 05/12/2023 3:27 PM CDT documented as of this encounter Plan of Treatment Upcoming Encounters Date Type Department Care Team (Late Contact Info) Description 01/07/2025 3:30 PM CDT Office Visit [facility] Neurology [facility] [address] [place] [address] Myron Lawson MD [address] [place] [address] documented as of this encounter Visit Diagnoses Not on filedocumented in this encounter Care Teams Customer Leader Relationship Specialty Start Date End Date Higinio Billy MD [address] [place] [address] PCP - General Family Medicine 11/08/22 Myron Lawson MD [address] [place] [address] Consulting Physician Neurology 05/11/23 documented as of this encounter
--- OUTSIDE RECORDS SUMMARY | 2024-12-04 07:29 | XMS_ITS | Encounter Summary ---
Author Organization [facility] Address [address] [place] [address] Phone Care Team Providers Care Signal Constructor Name Role Phone Higinio Billy MD Primary Care Provider [phone] Myron Lawson MD Unavailable [phone] Reason for Visit * Reason Comments Medication Refill Encounter Details Date Type Department Care Team (Late st Contact Info) Description 10/20/2023 Refill [facility] - Neurology [facility] [address] [place] [address] Myron Lawson MD [address] [place] [address] Medication Refill Social History Tobacco Use Types Packs/Day Years Used Date Smoking Tobacco: Never Smokeless Tobacco: Never Alcohol Use Standard Drinks/Week Comments Yes 0 (1 standard drink = 0.6 oz pur e alcohol) occasional Sex and Gender Information Value Date Recorded Sex Assigned at Not on file 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 Requested Prescriptions Pending Prescriptions Disp Refills predniSONE (DELTASONE) 5 MG Tablet [Pharmacy Med Name: PREDNISONE 5 MG TABLET] 90 Tablet 1 Sig: TAKE 1 TABLET BY MOUTH EVERY DAY Not Delegated - Corticosteroids Protocol Failed - 10/20/2023 2:37 AM Failed - This refill cannot be delegated Passed - Visit with relevant provider in past 12 months or upcoming 90 days Recent Visits Date Type Provider Dept 05/12/23 Office Visit Myron Lawson MD [facility] Neurology [facility] 11/08/22 Office Visit Myron Lawson MD [facility]rology [facility] [place] Showing recent visits within past 365 days and meeting all other requirements Future Appointments Date Type Provider Dept 11/15/23 Appointment Myron Lawson MD [facility] Neurology [facility] Showing future appointments within next 90 days and meeting all other requirements documented in this encounter Plan of Treatment Upcoming Encounters Date Type Department Care Team (Late st Contact Info) Description 01/07/2025 3:30 PM CDT Office Visit [facility] - [facility]rology [facility] [address] [place] [address] Myron Lawson MD [address] [place] [address] documented as of this encounter Visit Diagnoses Not on filedocumented in this encounter Care Teams Signal Constructor Relationship Specialty Start Date End Date Higinio Billy MD [address] [place] [address] PCP - General Family Medicine 11/08/22 Myron Lawson MD [address] [place] [address] Consulting Physician Neurology 05/11/23 documented as of this encounter
--- OUTSIDE RECORDS SUMMARY | 2024-12-04 07:29 | XMS_ITS | Encounter Summary ---
Author Organization [facility] Address [address] [place] [address] Phone Care Team Providers Care Trim Setter Helper Name Role Phone Higinio Billy MD Primary Care Provider [phone] Myron Lawson MD Unavailable [phone] Reason for Visit * Reason Comments Medication Refill Encounter Details Date Type Department Care Team (Late st Contact Info) Description 07/22/2023 Refill [facility] - Neurology [facility] [address] [place] [address] Myron Lawson MD [address] [place] [address] Medication Refill Social History Tobacco Use Types Packs/Day Years Used Date Smoking Tobacco: Never Smokeless Tobacco: Never Alcohol Use Standard Drinks/Week Comments Yes 0 (1 standard drink = 0.6 oz pur e alcohol) occasional Sex and Gender Information Value Date Recorded Sex Assigned at Not on file Legal Sex Male 1:06 PM MANAGEMENT RECRUITER Gender Identity Not on file Sexual Orientation Not on file documented as of this encounter Miscellaneous Notes * Telephone Encounter - Annetta Ware RN - 07/22/2023 2:55 PM CST Medication failed the protocol, provider to review and approve the medication order if appropriate. Requested Prescriptions Pending Prescriptions Disp Refills predniSONE (DELTASONE) 10 MG Tablet [Pharmacy Med Name: PREDNISONE 10 MG TABLET] 90 Tablet 1 Sig: TAKE 3 TABLETS BY MOUTH DAILY Not Delegated - Corticosteroids Protocol Failed - 07/22/2023 2:14 PM Failed - This refill cannot be delegated Passed - Visit with relevant provider in past 12 months or upcoming 90 days Recent Visits Date Type Provider Dept 05/12/23 Office Visit Myron Lawson MD [facility] 11/08/22 Office Visit Myron Lawson MD [facility] Neurology [facility] Showing recent visits within past 365 days and meeting all other requirements Future Appointments No visits were found meeting these conditions. Showing future appointments within next 90 days and meeting all other requirements GEMENT RECRUITER documented in this encounter Plan of Treatment Upcoming Encounters Date Type Department Care Team (Late st Contact Info) Description 01/07/2025 3:30 PM CDT [facility] [address] [place] [address] Myron Lawson MD [address] [place] [address] documented as of this encounter Visit Diagnoses Not on filedocumented in this encounter Care Teams Trim Setter Helper Relationship Specialty Start Date End Date Higinio Billy MD [address] [place] [address] PCP - General Family Medicine 11/08/22 Myron Lawson MD [address] [place] [address] Consulting Physician Neurology 05/11/23 documented as of this encounter
--- OUTSIDE RECORDS SUMMARY | 2024-12-04 07:29 | XMS_ITS | Encounter Summary ---
Author Organization [facility] Address [address] [place] [address] Phone Care Team Providers Care Ux Ui Designer Name Role Phone Higinio Billy MD Primary Care Provider [phone] Myron Lawson MD Unavailable [phone] Reason for Visit * Reason Comments Medication Refill Encounter Details Date Type Department Care Team (Late Contact Info) Description 01/[facility]2024 [facility]2 [place] [address] Myron Lawson MD [address] [place] [address] Medication Refill Social History Tobacco Use Types Packs/Day Years Used Date Smoking Tobacco: Never Smokeless Tobacco: Never Alcohol Use Standard Drinks/Week Comments Yes 0 (1 standard drink = 0.6 oz pur e alcohol) occasional Sex and Gender Information Value Date Recorded Sex Assigned at Not on file 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 Gender Identity Not on file Sexual Orientation Not on file documented as of this encounter Plan of Treatment Upcoming Encounters Date Type Department Care Team (Late Contact Info) Description 01/07/2025 3:30 PM CDT Office Visit [facility] #2 [place] [address] Myron Lawson MD [address] [place] [address] documented as of this encounter Visit Diagnoses Not on filedocumented in this encounter Care Teams Ux Ui Designer Relationship Specialty Start Date End Date Higinio Billy MD [address] [place] [address] PCP - General Family Medicine 11/08/22 Myron Lawson MD [address] [place] [address] Consulting Physician Neurology 05/11/23 documented as of this encounter
--- OUTSIDE RECORDS SUMMARY | 2024-12-04 07:30 | XMS_ITS | Encounter Summary ---
Author Organization [facility] Address [address] [place] [address] Phone Care Team Providers Care Shirt Closer Name Role Phone Higinio Billy MD Primary Care Provider [phone] Myron Lawson MD Unavailable [phone] Reason for Visit * Reason Comments Medication Refill Encounter Details Date Type Department Care Team (Late Contact Info) Description [facility] 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 [address] [place] [address] Myron Lawson MD [address] [place] [address] documented as of this encounter Visit Diagnoses Diagnosis Myasthenia gravis Myasthenia gravis without exacerbation documented in this encounter Care Teams Shirt Closer Relationship Specialty Start Date End Date Higinio Billy MD [address] [place] [address] PCP - General Family Medicine 11/08/22 Myron Lawson MD [address] [place] [address] Consulting Physician Neurology 05/11/23 documented as of this encounter
--- OUTSIDE RECORDS SUMMARY | 2024-12-04 07:30 | XMS_ITS | Clinical Summary ---
Author Organization [facility] Address [address] [place] [address] Care Team Providers Care Hot Plate Plywood Press Feeder Name Role Phone Tee Marcano MD Unavailable [phone] Source Comments [facility],non-owned Affiliates and Associated Physician Practices is amultiple site organization consisting of ambulatory clinics and hospital sitesin [place], [place], [place]. This disclosure is being madepursuant to the Care Everywhere program and may not contain all information available regarding this patient. Last updated 18.[facility] Allergies No known active allergies Medications * Be aware that medications may not be up to date on this document. Alwaysverify current medications with the patient. diclofenac sodium (VOLTAREN) 75 MG tablet Take 1 Tab by mouth 2 times daily. 60 Tab 4 06/28/2011 Active diazepam (VALIUM) 5 MG tablet Take 1 Tab by mouth 3 times daily. 90 Tab 1 06/28/2011 Active pyridostigmine (MESTINON) 60 MG tablet 4 times daily. Active predniSONE (DELTASONE) 5 MG tablet once daily. Active montelukast (SINGULAIR) 10 MG tablet once daily. 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 Not on file Not on file Not on file Last Filed Vital Signs Vital Sign Reading Time Taken Comments Blood Pressure - - Pulse - - Temperature - - Respiratory Rate - - Oxygen Saturation - - Inhaled Oxygen Concentration - - Weight 83 kg (183 lb) 06/28/2011 2:05 PM CUSTODIAN SUPERVISOR Height 172.7 cm (5' 8 ) 06/28/2011 2:05 PM CUSTODIAN SUPERVISOR Body Mass Index 27.83 06/28/2011 2:05 PM CUSTODIAN SUPERVISOR Plan of Treatment Health Maintenance Due Date Last Done Comments COLOGUARD (AGES 45-75) - COL ON CA SCREENING 1965 COLON MONITORING 1965 COLONOSCOPY - COLON CA SCREENING 1965 CT COLONOGRAPHY - COLON CA SCREENING 1965 Colorectal Cancer Screening 1965 FIT - COLON CA SCREENING 1965 FLEX SIG - COLON CA SCREENING 1965 LIPID TESTING 1965 HIV SCREENING 1980 HEPATITIS C SCREENING 10/06/1983 DTAP/TDAP/TD VACCINES (1 - Tdap) 1984 HEPATITIS B VACCINE (1 of 3 - 19+ 3-dose series) 1984 PNEUMOCOCCAL VACCINE 50+ (1 of 1 - PCV) 10/11/2015 ZOSTER VACCINE (1 of 2) 10/11/2015 COVID-19 VACCINE (1 - 2023-2 5 season) 2024 DEPRESSION SCREENING 08/01/2024 INFLUENZA VACCINE (Season Ended) 2025 HIB VACCINE Aged Out No longer eligi ble based on patient's age to complete this topic HPV VACCINE Aged Out No longer eligi ble based on patient's age to complete this topic MENINGOCOCCAL (Group B) VACC INE SHARED DECISION-MAKING Aged Out No longer eligibl e based on patient's age to complete this topic MENINGOCOCCAL GROUPS A/C/Y/W VACCINE Aged Out No longer eligible b ased on patient's age to complete this topic Care Teams Hot Plate Plywood Press Feeder Relationship Specialty Start Date End Date Tee Marcano MD Internal Medicine 06/28/11
--- OUTSIDE RECORDS SUMMARY | 2024-12-04 07:30 | XMS_ITS | Clinical Summary ---
Author Organization [facility] Address [address] [place] [address] Phone Care Team Providers Care Aix System Administrator Name Role Phone Higinio Billy MD Primary Care Provider [phone] Myron Lawson MD Unavailable [phone] Allergies No known active allergies Medications atenolol (TENORMIN) 25 MG Tablet Take 25 mg by mouth daily. Active lisinopril (PRINIVIL, ZESTRIL) 10 MG Tablet Take 10 mg by mouth daily. Active montelukast (SINGULAIR) 10 MG Tablet Take 10 mg by mouth every evening. Active nitroGLYCERIN (NITROSTAT) 0.4 MG SL Tablet 0.4 mg by Sublingual route every 5 minutes as needed. Active rosuvastatin (CRESTOR) 20 MG Tablet Take 40 mg by mouth daily. Active aspirin EC 81 MG Tablet Delayed Response Take 81 mg by mouth daily. Active Calcium Carbonate (CALCIUM 500 PO) Take by mouth. Activ e immune globulin (Gamunex-C) 1 GM/10ML SolutionIndicat ions:Myasthenia gravis 91.7 g by Intravenous route every 30 days. 917 mL 5 4 Active Additional Information Patient not taking.Reported on 07/09/2024 predniSONE (DELTASONE) 5 MG TabletIndicatio ns:Myasthenia gravis Take 1 Tablet by mouth 2 times daily. 180 Tablet 2 Active pyridostigmine (MESTINON) 60 MG TabletIndicatio ns:Myasthenia gravis TAKE 1 TABLET BY MOUTH FOUR TIMES A DAY 360 Tablet 1 4 Active Icosapent Ethyl 1 g Capsule Take by mouth. Act willard Family History Medical History Relation Name Comments Heart Disease Father Diabetes Mother Hypertension Mother Relation Name Status Comments Father Mother Social History Tobacco Use Types Packs/Day Years Used Date Smoking Tobacco: Never Smokeless Tobacco: Never Tobacco Cessation:Counseling Given: Not Answered Alcohol Use Standard Drinks/Week Comments Yes 0 (1 standard drink = 0.6 oz pur e alcohol) occasional Sex and Gender Information Value Date Recorded Sex Assigned at Not on file Legal Sex Male 1:06 PM NETEZZA DEVELOPER Gender Identity Not on file Sexual Orientation Not on file Last Filed Vital Signs Vital Sign Reading Time Taken Comments Blood Pressure 120/72 07/09/2024 2:57 PM NETEZZA DEVELOPER Pulse 61 07/09/2024 2:57 PM NETEZZA DEVELOPER Temperature 36.3 C (97.3 F) 07/09/2024 2:57 PM NETEZZA DEVELOPER Respiratory Rate 18 07/09/2024 2:57 PM NETEZZA DEVELOPER Oxygen Saturation 97% 07/09/2024 2:57 PM NETEZZA DEVELOPER Inhaled Oxygen Concentration - - Weight 94.5 kg (208 lb 4.8 oz) 07/09/2024 2:57 P M NETEZZA DEVELOPER Height 172.7 cm (5' 8 ) 07/09/2024 2:57 PM NETEZZA DEVELOPER Body Mass Index 31.67 07/09/2024 2:57 PM NETEZZA DEVELOPER Plan of Treatment Upcoming Encounters Date Type Department Care Team (Late st Contact Info) Description 01/07/2025 3:30 PM CDT Office Visit [facility] - Neurology [facility] [address] [place] [address] Myron Lawson MD [address] [place] [address] Health Maintenance Due Date Last Done Comments Hepatitis C Virus (HCV) Screening 1965 TdaP Immunization 1965 Hepatitis B Immunization (1 of 3 - 19+ 3-dose series) 1984 Cologuard 10/11/2015 Immunochemical Fecal Occult Blood 10/11/2015 Pneumococcal Immunization (50+ years) (1 of 1 - PCV) 10/11/2015 Zoster Immunization (1 of 2) 10/11/2015 PSA Discussion 2020 Influenza Immunization (#1) 2024 09/2 08/2022, 07/13/2022, 05/31/2021, Additional history exists SARS-COV-2 Immunization ( season) 2024 05/22/2022, 05/31/2021, 10/14/2020, Additional history exists Colonoscopy 07/02/2032 07/02/2022 Colorectal Cancer Screening 07/02/2032 Respiratory Syncytial Virus (RSV) Immunization (Adult) (1 - 1-dose 75+ series) 2040 07/02/2022 Meningococcal Immunization (ACWY) Aged Out No longer eligible based on patient's age to complete this topic Rotavirus Immunization Aged Out No lo nger eligible based on patient's age to complete this topic Insurance Care Teams Aix System Administrator Relationship Specialty Start Date End Date Higinio Billy MD [address] [place] [address] PCP - General Family Medicine 11/08/22 Myron Lawson MD [address] [place] [address] Consulting Physician Neurology 05/11/23
--- NOTE | 2024-12-04 07:38 | ED.MALEGU ---
HPI - Male Genitourinary General Chief complaint: Urogenital-Male Stated complaint: peeing blood Time Seen by Provider: 12/04/24 07:32 History of Present Illness HPI Narrative: Pt presents with urinary frequency and hematuria this morning. Pt denies abdominal pain. Pt denies fever or vomiting. Pt not on blood thinners. Pt has no history of similar symptoms. Pt did fall a week ago and struck low back but has been doing fine and working. Pt did not strike low abdomen. Related Data Home Medications ?Medication ?Instructions ?Recorded ?Confirmed ?Last Taken ?Type prednisone 5 mg tablet 10 mg PO DAILY 07/13/19 12/04/24 12/04/24 History pyridostigmine bromide 60 mg tablet 60 mg PO QID 07/13/19 12/04/24 12/04/24 History aspirin 81 mg tablet,delayed 81 mg PO DAILY 04/08/20 12/04/24 12/04/24 History release (Adult Aspirin Regimen) atenolol 25 mg tablet 25 mg PO DAILY 06/16/22 12/04/24 12/04/24 History montelukast 10 mg tablet 10 mg PO DAILY 06/16/22 12/04/24 12/04/24 History rosuvastatin 40 mg tablet 60 mg PO HS 06/16/22 12/04/24 12/03/24 History Allergies Allergy/AdvReac Type Severity Reaction Status Date / Time No Known Allergies Allergy Verified 12/04/24 15:27 Review of Systems Review of Systems: All systems reviewed & are unremarkable except as noted in HPI and below PMFSH Past Medical History Medical History GI bleed Pneumonia GERD (gastroesophageal reflux disease) History of rectal polyps Diverticulosis Myasthenia gravis Headache, migraine Hyperlipidemia Hypertension Surgical History Surgical History H/O colonoscopy removing rectal polyps History of thymectomy History of elbow surgery History of surgery on right wrist H/O right knee surgery Family History Family History Father Rheumatoid arthritis Heart disease Mother Hypertension Heart disease Social History Social History Smoking status: Former smoker Tobacco type: cigarettes Alcohol intake: current Drinks per week: 15 Substance use type: does not use Living arrangements: with family Spiritual care concerns: No Exam Const: General: healthy appearing and no acute distress Nutritional Appearance: well nourished Limitations: no limitations Resp: Effort & Inspection: normal respiratory effort Auscultation: clear to auscultation bilaterally Cardio: Rate: regular rate Rhythm: regular rhythm GI: GI Palp: Yes Soft to palpation and Yes Tenderness to palpation present (GI) (mild suprapubic tenderness) Auscultation: normal bowel sounds : General: Yes no CVA tenderness Back/Spine/Pelvis: Back: no CVA tenderness Neuro: General: patient oriented x3, moves all extremities and no focal motor deficits Speech: normal speech Extrem: General: normal to inspection and no clubbing, cyanosis or edema Psych: Mental Status: mental status grossly normal Affect: normal affect Attitude: cooperative Course Vital Signs Vital signs: Vital Signs Temperature 97.4 F L 12/04/24 07:25 Pulse Rate 71 12/04/24 07:25 Respiratory Rate 18 12/04/24 07:25 Blood Pressure 105/64 12/04/24 07:25 Pulse Oximetry 100 12/04/24 07:25 Oxygen Delivery Room Air 12/04/24 07:25 Temperature 97.6 F 12/04/24 15:47 Pulse Rate 60 12/04/24 17:15 Respiratory Rate 14 12/04/24 17:15 Blood Pressure 116/69 12/04/24 17:15 Pulse Oximetry 97 12/04/24 17:15 Oxygen Delivery Room Air 12/04/24 17:15 Oxygen Flow Rate 8 12/04/24 16:00 MDM - Male Genitourinary MDM Narrative Medical decision making narrative: Pt presents with hematuria and frequency . will check for UTI but will need labs and will talk with urology. initially planned to send home with follow up sicne h/h stable but pt had episode of hypotension which improved with fluids and started having more pain so discussed with Dr Blackmon and agreed to consult on admit/ discussed with Maya Salinas and agrees to admit. Dr Blackmon asked for us to order CT urogram. Dr blackmon will take to OR because pt bladder is full of clot. Lab Data 12/04/24 13:25 12/04/24 07:45 Labs: Lab Results 12/04/24 12/04/24 Range/Units 07:45 08:06 WBC 13.4 H (4.5-10.0) K/mm3 RBC 4.82 (4.6-6.20) M/mm3 Hgb 13.7 L (14.0-18.0) g/dL Hct 44.9 (42.0-52.0) % MCV 93.2 (80-100) fl MCH 28.4 (26-34) pg MCHC 30.5 L (32-36) g/dl RDW 13.2 (11.5-14.5) % Plt Count 265 (150-375) k/mm3 MPV 9.9 (7.4-10.4) fl Immature Gran % (Auto) 0.5 (0-0.5) % Neut % (Auto) 53.7 (45.5-73.1) % Lymph % (Auto) 33.4 (18.3-44.2) % [place] % (Auto) 10.3 H (2.6-8.5) % Eos % (Auto) 1.4 (0-4.4) % Baso % (Auto) 0.7 (0.2-1.2) % Lymph # (Auto) 4.46 H (0.9-3.2) K/mm3 [place] # (Auto) 1.4 H (0.1-0.6) K/mm3 Eos # (Auto) 0.2 (0-0.3) K/mm3 Baso # (Auto) 0.1 (0.0-0.1) K/mm3 Abs Immat Gran (auto) 0.07 H (0.00-0.031) K/mm3 Absolute Neuts (auto) 7.2 H (1.3-6.7) K/mm3 Absolute Nucleated RBC 0.000 (0.0-0.012) K/mm3 Nucleated RBC % 0.0 (0.0-0.2) % PT 12.9 (11.1-14.7) Seconds INR 0.9 APTT 24.8 (22.3-36.8) Seconds Sodium 139 (137-145) mmol/L Potassium 3.9 (3.4-5.0) mmol/L Chloride 106 (98-107) mmol/L Carbon Dioxide 18 L (22-30) mmol/L Anion Gap 15 H (4-12) mmol/L BUN 28 H (9-20) mg/dL Creatinine 1.16 (0.7-1.3) mg/dL Estim Creat Clear Calc 65 ml/min Estimated GFR > 60 (59 - ) Glucose 195 H (65-110) mg/dL Calcium 8.9 (8.4-10.2) mg/dL Total Bilirubin 0.9 (0.2-1.3) mg/dL AST 26 (17-59) U/L ALT 34 (6-50) U/L Alkaline Phosphatase 50 (38-126) U/L Total Protein 7.0 (6.3-8.2) g/dL Albumin 4.3 (3.5-5.1) g/dL Urine Color Red H (Yellow) Urine Appearance Other (Clear) Urine pH TNP Ur Specific [place] TNP Urine Protein TNP Urine Glucose (UA) TNP Urine Ketones TNP Ur Blood (Man) TNP Urine Nitrate TNP Urine Bilirubin TNP Urine Urobilinogen TNP Leukocyte Esterase Rfl TNP Urine RBC >100 H (0-2) /hpf Urine WBC Unable to determine (0-3) /hpf Ur Squamous Epith Cells Unable to determine (Few) /hpf Urine Bacteria Unable to determine (None) /hpf Discharge Plan Discharge Clinical Impression: Hematuria Patient Disposition: Still a Patient Condition: Improved
--- OUTSIDE RECORDS SUMMARY | 2024-12-04 07:45 | XMS_ITS | Continuity of Care Document ---
Author Organization Located within [facility] Address [address] [place] [address] Phone Care Team Providers Care Head Gauge Unit Operator Name Role Phone Huseyin Gilbert Unavailable Unavailable Procedures Procedure Date Eye Exam Established Pt Remove Foreign Body From Eye Office/outpatient Visit, Est Remove Foreign Body From Eye Advance Directives Directive Yes / No Effective Date File Name No Information Encounters Encounter Description Practice Location Reason(s) For Visit Diagnoses Date Provider Providers Copied on Encounter Merged with [facility], [id number] [place] [address] [address], [place], [place], [id number], [place] tel:[phone] [facility] No Information 0 Ofleia Fontanez. [address] [place], [address], . tel:[phone] Referring Provider: Huseyin Howard, [address] [place], [place], [facility]. tel:[phone] Merged with [facility], [address], [place], [place], [id number], [place] tel:[phone] [facility] No Information 0 Val San. [address], [place], [address], [place]. tel:[phone] Office/outpat ient Visit, Est Merged with [facility], [address], [place], [place], [id number], [place] tel:[phone] [facility] No Information May-0 7-200 7 Fabio Huerta. [address], [address], [place], [place], [address], [place]. tel:[phone] Formerly [facility], [address], [place], [place], [address], [place] tel:[phone] [facility] No Information May-0 1-200 7 Val San. [address], [place], [address], [place]. tel:[phone] Referring Provider: Tee Marcano MD, [address] [facility] [address], [place], [address]. tel:[phone] Family History Family Member Type Diagnosis Age [...]
[2024-12-04 07:56] LABS: Basophils Absolute Auto 0.1 K/mm3 (0.0-0.1); Basophils Percent Auto 0.7 % (0.2-1.2); Eosinophils Absolute Auto 0.2 K/mm3 (0-0.3); Eosinophils Percent Auto 1.4 % (0-4.4); Hematocrit 44.9 % (42.0-52.0); Hemoglobin 13.7 g/dL (14.0-18.0); Immature Granulocyte Absolute 0.07 K/mm3 (0.00-0.031); Immature Granulocyte Percent A 0.5 % (0-0.5); Lymphocytes Absolute Auto 4.46 K/mm3 (0.9-3.2); Lymphocytes Percent Auto 33.4 % (18.3-44.2); Mean Corpuscular HGB Conc 30.5 g/dl (32-36); Mean Corpuscular Hemoglobin 28.4 pg (26-34); Mean Corpuscular Volume 93.2 fl (80-100); Mean Platelet Volume 9.9 fl (7.4-10.4); Monocytes Absolute Auto 1.4 K/mm3 (0.1-0.6); Monocytes Percent Auto 10.3 % (2.6-8.5); Neutrophils Absolute Auto 7.2 K/mm3 (1.3-6.7); Neutrophils Percent Auto 53.7 % (45.5-73.1); Platelet Count Result 265 k/mm3 (150-375); Red Blood Count 4.82 M/mm3 (4.6-6.20); Red Cell Distribution Width 13.2 % (11.5-14.5); White Blood Count 13.4 K/mm3 (4.5-10.0)
--- NOTE | 2024-12-04 08:02 | PC.NURSE ---
Lab requesting new urine sample to be sent down. Pt given new cup to attempt collecting new urine sample
[2024-12-04 08:16] LABS: Alanine Aminotransferase 34 U/L (6-50); Albumin Level 4.3 g/dL (3.5-5.1); Alkaline Phosphatase 50 U/L (38-126); Anion Gap 15 mmol/L (4-12); Aspartate Amino Transferase 26 U/L (17-59); Bilirubin,Total 0.9 mg/dL (0.2-1.3); Blood Urea Nitrogen 28 mg/dL (9-20); Calcium 8.9 mg/dL (8.4-10.2); Carbon Dioxide 18 mmol/L (22-30); Chloride 106 mmol/L (98-107); Estimated CRCL calculation 65 ml/min; Estimated Glomerular Filt Rate > 60; Glucose 195 mg/dL (65-110); Potassium 3.9 mmol/L (3.4-5.0); Sodium 139 mmol/L (137-145)
[2024-12-04 08:19] LABS: INR 0.9; Prothrombin Time 12.9 Seconds (11.1-14.7)
[2024-12-04 08:20] LABS: Partial Thromboplastin Time 24.8 Seconds (22.3-36.8)
[2024-12-04 08:27] LABS: Add Urine Microscopic? YES
[2024-12-04 08:29] LABS: Appearance Urine Other (Clear); Color Urine Red (Yellow); RBC Urine >100 /hpf (0-2); Squamous Epithelial Cell Urine Unable to determine /hpf (Few); WBC Urine Unable to determine /hpf (0-3)
[2024-12-04 08:30] LABS: Bacteria Urine Unable to determine /hpf
--- NOTE | 2024-12-04 09:35 | PC.NURSE ---
Dr. Weir aware of patients blood pressure. Per Dr. Weir pt to be given NS bolus
[2024-12-04] MEDS: SODIUM CHLORIDE 0.9% IV 1,000 ML 999 ML IV CONT (09:45)
--- NOTE | 2024-12-04 11:45 | PC.NURSE ---
EDP made aware patients pain level 10/10. Patient bladder scanned after pt states he has not been getting much out despite feeling like he has to pee. Aware of bladder scan results 102.
[2024-12-04] MEDS: fentaNYL CITRATE INJ (*CRX) 100 MCG/2 ML VIAL 50 MCG IV PUSH (13:16)
[2024-12-04 13:33] LABS: Hematocrit 36.7 % (42.0-52.0); Hemoglobin 11.6 g/dL (14.0-18.0)
[2024-12-04] MEDS: LACTATED RINGERS 1,000 ML 125 ML IV CONT (13:36)
--- NOTE | 2024-12-04 13:45 | PC.NURSE ---
Urology at bedside
--- NOTE | 2024-12-04 14:20 | P.CONUR_ITS ---
Assessment and Plan Assessment and plan (1) Blood clot in bladder: Code(s): N32.89 - Other specified disorders of bladder Status: Acute Assessment and Plan: Etiology is unclear although there is some clot in the left renal collecting system. Will go ahead and take to the OR for cysto clot evacuation and placement of Pérez catheter. Will need to re-evaluate the left kidney 1 some of this clot resolves with a repeat CT urogram and possibly even retrograde with ureteroscopy in the future (2) Hematuria: Code(s): R31.9 - Hematuria, unspecified Status: Acute Assessment and Plan: See above Urology Consult Note HPI Date Seen: 12/04/24 Time Seen: 14:20 Requesting Physician: Aman Brooks MD Primary Care Provider: Franklin Lester, Consult Narrative Reason for consult: Hematuria with clots Narrative: Isidro Pierson is a 59 year old male fell about a week ago and his low back area. This is not been an issue 4 minutes he had been voiding well. He woke this morning and developed gross hematuria. He thus presented to the emergency room. He denies any flank pain significant urgency frequency nocturia or dysuria. CT urogram of a fills a large 10 cm clot in the bladder and after review with radiologist some clot in the left renal pelvis. He has some benign renal cysts present as well. Review of Systems 2 Review of Systems: All systems reviewed & are unremarkable except as noted in HPI and below PMFSH Past Medical History Medical History GI bleed Pneumonia GERD (gastroesophageal reflux disease) History of rectal polyps Diverticulosis Myasthenia gravis Headache, migraine Hyperlipidemia Hypertension Surgical History Surgical History H/O colonoscopy removing rectal polyps History of thymectomy History of elbow surgery History of surgery on right wrist H/O right knee surgery Family History Family History Father Rheumatoid arthritis Heart disease Mother Hypertension Heart disease Social History Social History Smoking status: Former smoker Tobacco type: cigarettes Alcohol intake: current Drinks per week: 15 Substance use type: does not use Living arrangements: with family Spiritual care concerns: No Meds Home Medications and Allergies Home Medications ?Medication ?Instructions ?Recorded ?Confirmed ?Type prednisone 5 mg tablet 5 mg PO DAILY 07/13/19 06/16/22 History pyridostigmine bromide 60 mg tablet 60 mg PO TID 07/13/19 06/16/22 History lisinopril 10 mg tablet 10 mg PO DAILY #90 tabs 03/07/20 06/16/22 Rx aspirin 81 mg tablet,delayed 81 mg PO DAILY 04/08/20 06/16/22 History release (Adult Aspirin Regimen) sodium,potassium,mag sulfates 17.5 See Rx Instructions PO .COMPLEX 05/11/22 Rx gram-3.13 gram-1.6 gram oral soln #354 mL (Suprep Bowel Prep Kit) atenolol 25 mg tablet 25 mg PO DAILY 06/16/22 07/02/22 History azathioprine 50 mg tablet 50 mg PO DAILY 06/16/22 06/16/22 History montelukast 10 mg tablet 10 mg PO DAILY 06/16/22 06/16/22 History nitroglycerin 0.4 mg sublingual 0.4 mg sublingual PRN PRN Chest 06/16/22 06/16/22 History tablet Pain rosuvastatin 40 mg tablet 40 mg PO DAILY 06/16/22 06/16/22 History Allergies Allergy/AdvReac Type Severity Reaction Status Date / Time No Known Allergies Allergy Verified 12/04/24 07:25 Vital Signs Vital Signs - 24 hr 12/04/24 07:25 12/04/24 08:03 12/04/24 08:37 Temperature 36.3 C L Pulse Rate 71 66 65 Respiratory Rate 18 16 16 Blood Pressure 105/64 114/79 95/64 L Pulse Oximetry 100 100 98 Oxygen Delivery Room Air 12/04/24 09:29 12/04/24 09:45 12/04/24 10:00 Temperature Pulse Rate 60 52 L 52 L Respiratory Rate 18 18 16 Blood Pressure 82/56 L 104/64 102/63 Pulse Oximetry 98 98 97 Oxygen Delivery 12/04/24 11:10 12/04/24 11:15 12/04/24 11:45 Temperature Pulse Rate 53 L 53 L 56 L Respiratory Rate 16 18 16 Blood Pressure 105/64 105/66 110/59 L Pulse Oximetry 99 96 99 Oxygen Delivery 12/04/24 12:00 12/04/24 13:00 12/04/24 13:39 Temperature Pulse Rate 52 L 53 L 52 L Respiratory Rate 14 16 14 Blood Pressure 112/67 115/72 109/70 Pulse Oximetry 97 99 97 Oxygen Delivery Exam 2 Const: General: cooperative; No comfortable Resp: Effort & Inspection: normal respiratory effort Cardio: Rate: regular rate Rhythm: regular rhythm Results Labs 12/04/24 13:25 12/04/24 07:45 Labs: Short CBC 12/04/24 12/04/24 Range/Units 07:45 13:25 WBC 13.4 H (4.5-10.0) K/mm3 Hgb 13.7 L 11.6 L (14.0-18.0) g/dL Hct 44.9 36.7 L (42.0-52.0) % Plt Count 265 (150-375) k/mm3 BMP 12/04/24 07:45 Sodium 139 Potassium 3.9 Chloride 106 Carbon Dioxide 18 L BUN 28 H Creatinine 1.16 Glucose 195 H Calcium 8.9 Liver Function 12/04/24 Range/Units 07:45 Total Bilirubin 0.9 (0.2-1.3) mg/dL AST 26 (17-59) U/L ALT 34 (6-50) U/L Alkaline Phosphatase 50 (38-126) U/L Albumin 4.3 (3.5-5.1) g/dL Urine 12/04/24 Range/Units 08:06 Urine Color Red H (Yellow) Urine Appearance Other (Clear) Urine pH TNP Ur Specific [place] TNP Urine Protein TNP Urine Glucose (UA) TNP
--- NOTE | 2024-12-04 14:25 | WPDHPUPDATE1 ---
History and Physical Update Update Date/Time: 12/04/24 14:25 History and Physical has been reviewed, including an updated exam of the patient. There are NO changes in the patient's condition. Risks, benefits, and alternatives have been discussed and questions answered. Patient agrees to proceed with procedure. Proceed with cystoscopy, with clot evacuation and Pérez catheter placement
--- NOTE | 2024-12-04 14:58 | P.PNAN_ITS ---
Anes - Initial Pre Proc Eval Procedure: Operation Date: 12/04/24 16:00 Proposed Procedures p Cystoscopy, Evacuation Bladder Clot - Markie Blackmon MD Date/Time: 12/04/24 14:58 Surgeon: Aman Brooks MD Pre Op Diagnosis: Hematuria Patient Data Age: 59 Gender: M Height: 1.68 m Weight: 92.7 kg Last Vital Signs Temp 97.4 F L 12/04/24 07:25 Pulse 58 L 12/04/24 13:45 Resp 16 12/04/24 13:45 BP 128/79 12/04/24 13:45 Pulse Ox 98 12/04/24 13:45 O2 Del Method Room Air 12/04/24 07:25 Allergies Allergy/AdvReac Type Severity Reaction Status Date / Time No Known Allergies Allergy Verified 12/04/24 07:25 Home Medications ?Medication ?Instructions ?Recorded ?Confirmed ?Type prednisone 5 mg tablet 10 mg PO DAILY 07/13/19 12/04/24 History pyridostigmine bromide 60 mg tablet 60 mg PO QID 07/13/19 12/04/24 History lisinopril 10 mg tablet 10 mg PO DAILY #90 tabs 03/07/20 12/04/24 Rx aspirin 81 mg tablet,delayed 81 mg PO DAILY 04/08/20 12/04/24 History release (Adult Aspirin Regimen) atenolol 25 mg tablet 25 mg PO DAILY 06/16/22 12/04/24 History montelukast 10 mg tablet 10 mg PO DAILY 06/16/22 12/04/24 History rosuvastatin 40 mg tablet 60 mg PO HS 06/16/22 12/04/24 History Laboratory Tests 12/04/24 12/04/24 12/04/24 07:45 08:06 13:25 WBC 13.4 H K/mm3 (4.5-10.0) RBC 4.82 M/mm3 (4.6-6.20) Hgb 13.7 L g/dL 11.6 L g/dL (14.0-18.0) (14.0-18.0) Hct 44.9 % 36.7 L % (42.0-52.0) (42.0-52.0) MCV 93.2 fl (80-100) MCH 28.4 pg (26-34) MCHC 30.5 L g/dl (32-36) RDW 13.2 % (11.5-14.5) Plt Count 265 k/mm3 (150-375) MPV 9.9 fl (7.4-10.4) Immature Gran % (Auto) 0.5 % (0-0.5) Neut % (Auto) 53.7 % (45.5-73.1) Lymph % (Auto) 33.4 % (18.3-44.2) [place] % (Auto) 10.3 H % (2.6-8.5) Eos % (Auto) 1.4 % (0-4.4) Baso % (Auto) 0.7 % (0.2-1.2) Lymph # (Auto) 4.46 H K/mm3 (0.9-3.2) [place] # (Auto) 1.4 H K/mm3 (0.1-0.6) Eos # (Auto) 0.2 K/mm3 (0-0.3) Baso # (Auto) 0.1 K/mm3 (0.0-0.1) Abs Immat Gran (auto) 0.07 H K/mm3 (0.00-0.031) Absolute Neuts (auto) 7.2 H K/mm3 (1.3-6.7) Absolute Nucleated RBC 0.000 K/mm3 (0.0-0.012) Nucleated RBC % 0.0 % (0.0-0.2) PT 12.9 Seconds (11.1-14.7) INR 0.9 APTT 24.8 Seconds (22.3-36.8) Sodium 139 mmol/L (137-145) Potassium 3.9 mmol/L (3.4-5.0) Chloride 106 mmol/L (98-107) Carbon Dioxide 18 L mmol/L (22-30) Anion Gap 15 H mmol/L (4-12) BUN 28 H mg/dL (9-20) Creatinine 1.16 mg/dL (0.7-1.3) Estim Creat Clear Calc 65 ml/min Estimated GFR > 60 (59 - ) Glucose 195 H mg/dL (65-110) Calcium 8.9 mg/dL (8.4-10.2) Total Bilirubin 0.9 mg/dL (0.2-1.3) AST 26 U/L (17-59) ALT 34 U/L (6-50) Alkaline Phosphatase 50 U/L (38-126) Total Protein 7.0 g/dL (6.3-8.2) Albumin 4.3 g/dL (3.5-5.1) Urine Color Red H (Yellow) Urine Appearance Other (Clear) Urine pH TNP Ur Specific [place] TNP Urine Protein TNP Urine Glucose (UA) TNP Urine Ketones TNP Ur Blood (Man) TNP Urine Nitrate TNP Urine Bilirubin TNP Urine Urobilinogen TNP Leukocyte Esterase Rfl TNP Urine RBC >100 H /hpf (0-2) Urine WBC Unable to determine /hpf (0-3) Ur Squamous Epith Cells Unable to determine /hpf (Few) Urine Bacteria Unable to determine /hpf (None) Patient hx anesthesia problems: none Family hx anesthesia problems: none Results Review: All pre-operative results and documents have been reviewed as part of the pre-operative evaluation. [facility] Past Medical History Medical History GI bleed Pneumonia GERD (gastroesophageal reflux disease) History of rectal polyps Diverticulosis Myasthenia gravis Headache, migraine Hyperlipidemia Hypertension Surgical History Surgical History H/O colonoscopy removing rectal polyps History of thymectomy History of elbow surgery History of surgery on right wrist H/O right knee surgery Family History Family History Father Rheumatoid arthritis Heart disease Mother Hypertension Heart disease Social History Social History Smoking status: Former smoker Tobacco type: cigarettes Alcohol intake: current Drinks per week: 15 Substance use type: does not use Living arrangements: with family Spiritual care concerns: No Anes - Eval Final PreProcedure Day of Procedure 12/04/24 14:58 Patient weight: obese Lungs: normal air movement Airway: Mallampati scale class II Neurological: alert and oriented Last oral intake: >/= 8 hours ASA classification: III Emergent: no Anesthetic plan: proceed Anesthesia type and monitoring: general LMA and standard monitoring Results Review: All pre-operative results and documents have been reviewed as part of the pre- operative evaluation. HTN, hyperlipidemia, myasthenia gravis (pt on meds 4 x daily), active w cutting grass, no cp or sob. 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 Informed Consent: The patient's anesthetic plan and its attendant risks and benefits were discussed with the patient/family/POA. Questions were solicited and answers provided to the satisfaction of the patient/family/POA.
[2024-12-04] MEDS: LACTATED RINGERS 1,000 ML 30 ML IV CONT (15:00)
[2024-12-04] MEDS: ceFAZolin 2 GM/D5W 50 ML 2 GM/50 ML BAG IVPB (15:15)
[2024-12-04] MEDS: LIDOCAINE 2% GEL UROJET 10 ML PKG MUCOUS MEM (15:41)
--- NOTE | 2024-12-04 15:47 | P.OP_ITS ---
Procedure Note - Detailed Date of Procedure 12/04/24 Pre-op Diagnosis Gross hematuria with clot retention Post-op Diagnosis Same Procedure Performed Cystoscopy with clot evacuation, bladder biopsy with fulguration, complex Pérez catheter placement Surgeon Markie Blackmon MD Anesthesia General Description of Procedure Patient was taken to the operative suite correctly identified. Once anesthesia was obtained was placed in dorsal lithotomy position and prepped and draped usual sterile fashion. Twenty-two [place] scope was inserted the bladder and direct vision. There were no urethral strictures. Prostate nonobstructive. Upon entering the bladder there was a huge clot present. I evacuated closed who has 800 cc of clot from the bladder. Reinspection then reveals no obvious tumor grocer bleeding. There was an area of erythema along the posterior wall which I think was more from the suction from the clot of act. Nonetheless I did biopsy this and fulgurate the base. I did not see any evidence of bleeding from either ureteral orifice at this time but his urine production was minimal. At this point time 2% viscous lidocaine was inserted into the urethra and a [address] was placed with 10 cc in the balloon. This was connected to continuous bladder irrigation for the time being. He is taken recovery stable condition. Will plan on re-evaluating his upper tracks send about a month to 2 months with a repeat CT urogram. This completes dictation. Please send a copy of op note t o my office Estimated Blood Loss 0 Drains Yes Packing No Pathology Yes Complications No immediate complications Condition Stable Disposition PACU
--- NOTE | 2024-12-04 17:37 | ADMGEN ---
This patient, Isidro Pierson, was admitted to IMU Room 210-01. Patient/family oriented to hospital policies and general routines including ID bracelet, bed and alarms, visiting hours, pain management, procedures, bathroom and other care routines, personal items, smoking policy, room service/diet, and visiting hours. Information on how to activate the Rapid Response Team has been discussed. Patient/Family are encouraged to report perceived risks to care and to ask questions if they do not understand what they are told or what they should do.
--- NOTE | 2024-12-04 18:47 | PM.IMHP ---
H&P: HPI History of Present Illness Date/Time: 12/04/24 18:47 Chief Complaint: Hematuria Narrative: ER-HPI Narrative: Pt presents with urinary frequency and hematuria this morning. Pt denies abdominal pain. Pt denies fever or vomiting. Pt not on blood thinners. Pt has no history of similar symptoms. Pt did fall a week ago and struck low back but has been doing fine and working. Pt did not strike low abdomen. patient presented with urinary retention and hematuria was seen by the urologist and was taken to OR emergently had cystoscopy which showed a large blood clot and the bladder which was evacuated, the urologist did not see any mass in the bladder, and source bleeding is unclear at present, several biopsy were taken from the bladder and further recommendation to follow, patient is currently on CBI and urine appears to be clean, patient stats he feels better, will monitor. patient family is present and gave updates. Review of Systems Review of Systems: All systems reviewed & are unremarkable except as noted in HPI and below PMFSH Past Medical History Medical History GI bleed Pneumonia GERD (gastroesophageal reflux disease) History of rectal polyps Diverticulosis Myasthenia gravis Headache, migraine Hyperlipidemia Hypertension Surgical History Surgical History H/O colonoscopy removing rectal polyps History of thymectomy History of elbow surgery History of surgery on right wrist H/O right knee surgery Family History Family History Father Rheumatoid arthritis Heart disease Mother Hypertension Heart disease Social History Social History Smoking status: Former smoker Tobacco type: cigarettes Alcohol intake: current Drinks per week: 20 Substance use: never Substance use type: does not use Do You Feel Safe in your Home?: Yes Lack of Transportation: No Lack of Food: Never True Current Housing: I Have Housing Concerned About Future Housing: No Difficulty Paying Gas/Electric Bills: No Difficulty Paying for Meds: No Currently Unemployed: No Education: High School Diploma/GED Difficulty w/ Childcare or Family Care: No Living arrangements: with family Spiritual care concerns: No Meds Home Medications and Allergies Home Medications ?Medication ?Instructions ?Recorded ?Confirmed ?Type prednisone 5 mg tablet 10 mg PO DAILY 07/13/19 12/04/24 History pyridostigmine bromide 60 mg tablet 60 mg PO QID 07/13/19 12/04/24 History lisinopril 10 mg tablet 10 mg PO DAILY #90 tabs 03/07/20 12/04/24 Rx aspirin 81 mg tablet,delayed 81 mg PO DAILY 04/08/20 12/04/24 History release (Adult Aspirin Regimen) atenolol 25 mg tablet 25 mg PO DAILY 06/16/22 12/04/24 History montelukast 10 mg tablet 10 mg PO DAILY 06/16/22 12/04/24 History rosuvastatin 40 mg tablet 60 mg PO HS 06/16/22 12/04/24 History icosapent ethyl 1 gram capsule 2 g PO BID 12/04/24 12/04/24 History Allergies Allergy/AdvReac Type Severity Reaction Status Date / Time No Known Allergies Allergy Verified 12/04/24 15:27 Vital Signs Vital Signs - 24 hr 12/04/24 07:25 12/04/24 08:03 12/04/24 08:37 Temperature 36.3 C L Pulse Rate 71 66 65 Respiratory Rate 18 16 16 Blood Pressure 105/64 114/79 95/64 L Pulse Oximetry 100 100 98 Oxygen Delivery Room Air Oxygen Flow Rate 12/04/24 09:29 12/04/24 09:45 12/04/24 10:00 Temperature Pulse Rate 60 52 L 52 L Respiratory Rate 18 18 16 Blood Pressure 82/56 L 104/64 102/63 Pulse Oximetry 98 98 97 Oxygen Delivery Oxygen Flow Rate 12/04/24 11:10 12/04/24 11:15 12/04/24 11:45 Temperature Pulse Rate 53 L 53 L 56 L Respiratory Rate 16 18 16 Blood Pressure 105/64 105/66 110/59 L Pulse Oximetry 99 96 99 Oxygen Delivery Oxygen Flow Rate 12/04/24 12:00 12/04/24 13:00 12/04/24 13:39 Temperature Pulse Rate 52 L 53 L 52 L Respiratory Rate 14 16 14 Blood Pressure 112/67 115/72 109/70 Pulse Oximetry 97 99 97 Oxygen Delivery Oxygen Flow Rate 12/04/24 13:45 12/04/24 14:30 12/04/24 15:47 Temperature 36.0 C L 36.4 C Pulse Rate 58 L 59 L 54 L Respiratory Rate 16 14 15 Blood Pressure 128/79 128/73 127/71 Pulse Oximetry 98 98 100 Oxygen Delivery Room Air Room Air Oxygen Flow Rate 12/04/24 16:00 12/04/24 16:15 12/04/24 16:30 Temperature Pulse Rate 52 L 56 L 49 L Respiratory Rate 14 15 16 Blood Pressure 105/64 117/65 108/66 Pulse Oximetry 97 95 97 Oxygen Delivery Simple Face Mask Room Air Room Air Oxygen Flow Rate 8 12/04/24 16:45 12/04/24 17:00 12/04/24 17:15 Temperature Pulse Rate 56 L 56 L 60 Respiratory Rate 11 L 20 14 Blood Pressure 108/81 108/81 116/69 Pulse Oximetry 96 98 97 Oxygen Delivery Room Air Room Air Room Air Oxygen Flow Rate 12/04/24 17:40 Temperature 36.9 C Pulse Rate 58 L Respiratory Rate 14 Blood Pressure 128/84 Pulse Oximetry 97 Oxygen Delivery Oxygen Flow Rate Exam Narrative: Patient is comfortable, NAD HEENT: eyes are clear and none icteric LUNGS:CTA HEART: RR S1S2 ABD: BS+, Soft and nontender Lower extremities: no edema SKIN: nonjaundiced Neuro: grossly intact. H&P: Results Labs Labs: Short CBC 12/04/24 12/04/24 Range/Units 07:45 13:25 WBC 13.4 H (4.5-10.0) K/mm3 Hgb 13.7 L 11.6 L (14.0-18.0) g/dL Hct 44.9 36.7 L (42.0-52.0) % Plt Count 265 (150-375) k/mm3 BMP 12/04/24 07:45 Sodium 139 Potassium 3.9 Chloride 106 Carbon Dioxide 18 L BUN 28 H Creatinine 1.16 Glucose 195 H Calcium 8.9 Liver Function 12/04/24 Range/Units 07:45 Total Bilirubin 0.9 (0.2-1.3) mg/dL AST 26 (17-59) U/L ALT 34 (6-50) U/L Alkaline Phosphatase 50 (38-126) U/L Albumin 4.3 (3.5-5.1) g/dL Urine 12/04/24 Range/Units 08:06 Urine Color Red H (Yellow) Urine Appearance Other (Clear) Urine pH TNP Ur Specific [place] TNP Urine Protein TNP Urine Glucose (UA) TNP Assessment and Plan Assessment and plan (1) Blood clot in bladder: Code(s): N32.89 - Other specified disorders of bladder Status: Acute (2) Hematuria: Code(s): R31.9 - Hematuria, unspecified Status: Acute (3) Hypertension: Code(s): I10 - Essential (primary) hypertension Status: Acute (4) Hyperlipidemia: Code(s): E78.5 - Hyperlipidemia, unspecified Status: Acute (5) CAD (coronary artery disease): Code(s): I25.10 - Atherosclerotic heart disease of [place] coronary artery without angina pectoris Status: Acute Plan patient presented with urinary retention and hematuria was seen by the urologist and was taken to OR emergently had cystoscopy which showed a large blood clot and the bladder which was evacuated, the urologist did not see any mass in the bladder, and source bleeding is unclear at present, several biopsy were taken from the bladder and further recommendation to follow, patient is currently on CBI and urine appears to be clean, patient stats he feels better, will monitor. patient family is present and gave updates. Quality VTE Prophylaxis VTE prophylaxis: mechanical ordered Hospitalist MIPS Advance Care Plan I have confirmed that the patient's Advanced Care Plan is present, code status is documented, or surrogate decision maker is listed in patient medical record.: Yes Medication Reconciliation The patient is not eligible for med reconciliation; the patient is in a emergent medical situation where delaying treatment would jeopardize the patients health.: Yes
[2024-12-04 19:06] LABS: Hemoglobin 11.6 g/dL (14.0-18.0)
[2024-12-04] MEDS: ROSUVASTATIN 20 MG TABLET 60 MG PO (20:09)
[2024-12-04] MEDS: pyRIDostigmine bromide 60 MG TABLET PO (20:09)
[2024-12-05] VITALS (12 sets, daily range): BP systolic 112–129; BP diastolic 62–73; PULSE 50–74; RESP 16–18; TEMP 36.6–36.9; O2SAT 97–98
[2024-12-05 01:01] LABS: Hematocrit 33.7 % (42.0-52.0); Hemoglobin 10.7 g/dL (14.0-18.0)
[2024-12-05 06:18] LABS: Hematocrit 35.1 % (42.0-52.0); Hemoglobin 10.8 g/dL (14.0-18.0); Mean Corpuscular HGB Conc 30.8 g/dl (32-36); Mean Corpuscular Volume 94.4 fl (80-100); Platelet Count Result 186 k/mm3 (150-375); Red Blood Count 3.72 M/mm3 (4.6-6.20); White Blood Count 10.9 K/mm3 (4.5-10.0)
[2024-12-05 06:30] LABS: Anion Gap 3 mmol/L (4-12); Blood Urea Nitrogen 25 mg/dL (9-20); Calcium 8.6 mg/dL (8.4-10.2); Carbon Dioxide 29 mmol/L (22-30); Chloride 103 mmol/L (98-107); Estimated CRCL calculation 77 ml/min; Estimated Glomerular Filt Rate > 60; Glucose 110 mg/dL (65-110); Potassium 4.3 mmol/L (3.4-5.0); Sodium 135 mmol/L (137-145)
--- NOTE | 2024-12-05 07:15 | P.PNUR_ITS ---
Progress Note: A&P Assessment and Plan (1) Hematuria: Code(s): R31.9 - Hematuria, unspecified Status: Acute Assessment and Plan: Etiology is unclear at this time. Will repeat CT urogram in 6 week with follow-up office visit. May require ureteroscopy if abnormalities noted. (2) Blood clot in bladder: Code(s): N32.89 - Other specified disorders of bladder Status: Acute Assessment and Plan: Status post clot evacuation with bladder biopsy. Doing well. Urine clear with minimal CBI. Will hold CBI at this time. Voiding trial in about an hour and a half. If voids without difficulty could be discharged from Urology standpoint. Subjective Subjective Date/Time Seen: 12/05/24 07:15 Interval history: Doing well post clot evacuation. Upon further discussion he did state that he was having some left flank pain which may explain some of the clot in his left collecting system. At this point time his urine is clear with minimal CBI. Review of Systems Review of Systems: All systems reviewed & are unremarkable except as noted in HPI and below Exam Const: General: cooperative and comfortable Resp: Effort & Inspection: normal respiratory effort Cardio: Rate: regular rate Rhythm: regular rhythm Urinary Catheter: Urinary Catheter: patent and draining and urine clear Objective Data Vital Signs Vital Signs: Vital Signs - 24 hr 12/04/24 07:25 12/04/24 08:03 12/04/24 08:37 Temperature 36.3 C L Pulse Rate 71 66 65 Respiratory Rate 18 16 16 Blood Pressure 105/64 114/79 95/64 L Pulse Oximetry 100 100 98 Oxygen Delivery Room Air Oxygen Flow Rate 12/04/24 09:29 12/04/24 09:45 12/04/24 10:00 Temperature Pulse Rate 60 52 L 52 L Respiratory Rate 18 18 16 Blood Pressure 82/56 L 104/64 102/63 Pulse Oximetry 98 98 97 Oxygen Delivery Oxygen Flow Rate 12/04/24 11:10 12/04/24 11:15 12/04/24 11:45 Temperature Pulse Rate 53 L 53 L 56 L Respiratory Rate 16 18 16 Blood Pressure 105/64 105/66 110/59 L Pulse Oximetry 99 96 99 Oxygen Delivery Oxygen Flow Rate 12/04/24 12:00 12/04/24 13:00 12/04/24 13:39 Temperature Pulse Rate 52 L 53 L 52 L Respiratory Rate 14 16 14 Blood Pressure 112/67 115/72 109/70 Pulse Oximetry 97 99 97 Oxygen Delivery Oxygen Flow Rate 12/04/24 13:45 12/04/24 14:30 12/04/24 15:47 Temperature 36.0 C L 36.4 C Pulse Rate 58 L 59 L 54 L Respiratory Rate 16 14 15 Blood Pressure 128/79 128/73 127/71 Pulse Oximetry 98 98 100 Oxygen Delivery Room Air Room Air Oxygen Flow Rate 12/04/24 16:00 12/04/24 16:15 12/04/24 16:30 Temperature Pulse Rate 52 L 56 L 49 L Respiratory Rate 14 15 16 Blood Pressure 105/64 117/65 108/66 Pulse Oximetry 97 95 97 Oxygen Delivery Simple Face Mask Room Air Room Air Oxygen Flow Rate 8 12/04/24 16:45 12/04/24 17:00 12/04/24 17:15 Temperature Pulse Rate 56 L 56 L 60 Respiratory Rate 11 L 20 14 Blood Pressure 108/81 108/81 116/69 Pulse Oximetry 96 98 97 Oxygen Delivery Room Air Room Air Room Air Oxygen Flow Rate 12/04/24 17:40 12/04/24 20:00 12/04/24 20:00 Temperature 36.9 C 36.8 C Pulse Rate 58 L 62 62 Respiratory Rate 14 18 Blood Pressure 128/84 101/69 Pulse Oximetry 97 97 Oxygen Delivery Oxygen Flow Rate 12/04/24 20:00 12/04/24 22:00 12/04/24 23:35 Temperature 36.6 C Pulse Rate 59 L 53 L Respiratory Rate 96 H Blood Pressure 104/56 L Pulse Oximetry 96 Oxygen Delivery Room Air Oxygen Flow Rate 12/04/24 23:57 12/05/24 00:00 12/05/24 02:00 Temperature Pulse Rate 57 L 56 L Respiratory Rate Blood Pressure Pulse Oximetry Oxygen Delivery Room Air Oxygen Flow Rate 12/05/24 03:58 12/05/24 04:00 12/05/24 04:00 Temperature 36.8 C Pulse Rate 60 54 L Respiratory Rate 17 Blood Pressure 116/62 Pulse Oximetry 98 Oxygen Delivery Room Air Oxygen Flow Rate 12/05/24 06:00 Temperature Pulse Rate 52 L Respiratory Rate Blood Pressure Pulse Oximetry Oxygen Delivery Oxygen Flow Rate Intake/Output Intake/Output: Intake & Output 12/02/24 12/03/24 12/04/24 12/05/24 23:59 23:59 23:59 23:59 Intake Total 1313.5 450 Output Total 2800 875 Balance -1486.5 -425 Meds/Results Medications: Active Medications Generic Name Dose Route Start Last Admin Trade Name Christopher PRN Reason Stop Dose Admin Aspirin 81 mg 12/05/24 09:00 Aspirin 81 Mg Enteric Tablet PO DAILY ETTA Atenolol 25 mg 12/05/24 09:00 Atenolol 25 Mg Tablet PO DAILY ETTA Lactated Ringer's 1,000 mls @ 30 mls/hr 12/04/24 15:15 12/04/24 15:47 Lr - Lactated Ringers Iv IV CONT 30 mls/hr .Q24H ETTA Infusion Lisinopril 10 mg 12/05/24 09:00 Lisinopril 10 Mg Tablet PO DAILY ETTA Montelukast Sodium 10 mg 12/05/24 09:00 Montelukast Sodium 10 Mg Tablet PO DAILY ETTA Prednisone 10 mg 12/05/24 09:00 Prednisone 10 Mg Tablet PO DAILY ETTA Pyridostigmine [place] 60 mg 12/04/24 21:00 12/04/24 20:09 Pyridostigmine [place] 60 Mg Tablet PO 60 mg QID ETTA Administration Rosuvastatin Calcium 60 mg 12/04/24 21:00 12/04/24 20:09 Rosuvastatin 20 Mg Tablet PO 60 mg HS ETTA Administration Radiology Results: ITS Impressions Abdomen/Pelvis CT 12/04/24 13:19 Impression: 10.1 x 6.5 cm probable blood clot/hematoma within the bladder lumen, mobile. Precise cause/source of this hematoma is unclear. Probable punctate nonobstructing left renal stone. Labs Labs: Laboratory Results - last 24 hr 12/04/24 12/04/24 12/04/24 07:45 08:06 13:25 WBC 13.4 H RBC 4.82 Hgb 13.7 L 11.6 L Hct 44.9 36.7 L MCV 93.2 MCH 28.4 MCHC 30.5 L RDW 13.2 Plt Count 265 MPV 9.9 Immature Gran % (Auto) 0.5 Neut % (Auto) 53.7 Lymph % (Auto) 33.4 [place] % (Auto) 10.3 H Eos % (Auto) 1.4 Baso % (Auto) 0.7 Lymph # (Auto) 4.46 H [place] # (Auto) 1.4 H Eos # (Auto) 0.2 Baso # (Auto) 0.1 Abs Immat Gran (auto) 0.07 H Absolute Neuts (auto) 7.2 H Absolute Nucleated RBC 0.000 Nucleated RBC % 0.0 PT 12.9 INR 0.9 APTT 24.8 Sodium 139 Potassium 3.9 Chloride 106 Carbon Dioxide 18 L Anion Gap 15 H BUN 28 H Creatinine 1.16 Estim Creat Clear Calc 65 Estimated GFR > 60 Glucose 195 H Calcium 8.9 Total Bilirubin 0.9 AST 26 ALT 34 Alkaline Phosphatase 50 Total Protein 7.0 Albumin 4.3 Urine Color Red H Urine Appearance Other Urine pH TNP Ur Specific [place] TNP Urine Protein TNP Urine Glucose (UA) TNP Urine Ketones TNP Ur Blood (Man) TNP Urine Nitrate TNP Urine Bilirubin TNP Urine Urobilinogen TNP Leukocyte Esterase Rfl TNP Urine RBC >100 H Urine WBC Unable to determine Ur Squamous Epith Cells Unable to determine Urine Bacteria Unable to determine 12/04/24 12/05/24 12/05/24 18:43 00:55 05:57 WBC 10.9 H RBC 3.72 L Hgb 11.6 L 10.7 L 10.8 L Hct 37.0 L 33.7 L 35.1 L MCV 94.4 MCH 29.0 MCHC 30.8 L RDW 13.0 Plt Count 186 MPV 10.0 Immature Gran % (Auto) Neut % (Auto) Lymph % (Auto) [place] % (Auto) Eos % (Auto) Baso % (Auto) Lymph # (Auto) [place] # (Auto) Eos # (Auto) Baso # (Auto) Abs Immat Gran (auto) Absolute Neuts (auto) Absolute Nucleated RBC Nucleated RBC % PT INR APTT Sodium 135 L Potassium 4.3 Chloride 103 Carbon Dioxide 29 Anion Gap 3 L BUN 25 H Creatinine 0.98 Estim Creat Clear Calc 77 Estimated GFR > 60 Glucose 110 Calcium 8.6 Total Bilirubin AST ALT Alkaline Phosphatase Total Protein Albumin Urine Color Urine Appearance Urine pH Ur Specific [place] Urine Protein Urine Glucose (UA) Urine Ketones Ur Blood (Man) Urine Nitrate Urine Bilirubin Urine Urobilinogen Leukocyte Esterase Rfl Urine RBC Urine WBC Ur Squamous Epith Cells Urine Bacteria
[2024-12-05] MEDS: predniSONE 10 MG TABLET PO (08:20)
[2024-12-05] MEDS: pyRIDostigmine bromide 60 MG TABLET PO ×2 (08:20→12:52)
[2024-12-05] MEDS: lisinopriL 10 MG TABLET PO (08:21)
[2024-12-05] MEDS: atenoloL 25 MG TABLET PO (08:21)
[2024-12-05] MEDS: MONTELUKAST SODIUM 10 MG TABLET PO (08:22)
[2024-12-05] MEDS: ASPIRIN 81 MG ENTERIC TABLET PO (08:22)
--- NOTE | 2024-12-05 13:11 | P.DS_ITS ---
DS: Admitting Diagnosis Discharge Date 12/05/24 Admitting Diagnosis Hematuria DS: Discharge Diagnosis Discharge Diagnosis (1) Blood clot in bladder: Code(s): N32.89 - Other specified disorders of bladder Status: Acute (2) Hematuria: Code(s): R31.9 - Hematuria, unspecified Status: Acute (3) Hypertension: Code(s): I10 - Essential (primary) hypertension Status: Acute (4) Hyperlipidemia: Code(s): E78.5 - Hyperlipidemia, unspecified Status: Acute (5) CAD (coronary artery disease): Code(s): I25.10 - Atherosclerotic heart disease of [place] coronary artery without angina pectoris Status: Acute Plan patient presented with urinary retention and hematuria was seen by the urologist and was taken to OR emergently had cystoscopy which showed a large blood clot and the bladder which was evacuated, the urologist did not see any mass in the bladder, and source bleeding is unclear at present, several biopsy were taken from the bladder and further recommendation to follow, patient is currently on CBI and urine appears to be clean, patient stats he feels better, will monitor. patient family is present and gave updates. DS: Summary Hospital Course Hospital Course: patient presented with urinary retention and hematuria was seen by the urologist and was taken to OR emergently had cystoscopy which showed a large blood clot in the bladder which was evacuated, the urologist did not see any mass in the bladder, and source bleeding is unclear at present, several biopsy were taken from the bladder and further recommendation to follow, patient was placed on CBI and urine appears to be clean today, patient was able to avoid without any difficulty, patient stats he feels better, was seen by his urologist patient okay to discharge home today. Time Spent with Patient Time attestation: Total time spent providing and/or coordinating discharge services: Exam Narrative: Patient is comfortable, NAD HEENT: eyes are clear and none icteric LUNGS:CTA HEART: RR S1S2 ABD: BS+, Soft and nontender Lower extremities: no edema SKIN: nonjaundiced Neuro: grossly intact. DS: Data Data Completed and Pending Pending studies at discharge: Pending at discharge 12/04/24 15:33 Surgical [PTH] Routine Labs on day of discharge: Labs from last 24 hours 12/05/24 12/05/24 12/04/24 05:57 00:55 18:43 WBC 10.9 H RBC 3.72 L Hgb 10.8 L 10.7 L 11.6 L Hct 35.1 L 33.7 L 37.0 L MCV 94.4 MCH 29.0 MCHC 30.8 L RDW 13.0 Plt Count 186 MPV 10.0 Sodium 135 L Potassium 4.3 Chloride 103 Carbon Dioxide 29 Anion Gap 3 L BUN 25 H Creatinine 0.98 Estim Creat Clear Calc 77 Estimated GFR > 60 Glucose 110 Calcium 8.6 12/04/24 13:25 WBC RBC Hgb 11.6 L Hct 36.7 L MCV MCH MCHC RDW Plt Count MPV Sodium Potassium Chloride Carbon Dioxide Anion Gap BUN Creatinine Estim Creat Clear Calc Estimated GFR Glucose Calcium Discharge Plan Discharge Attending physician on discharge: Aman Brooks Consulting providers: Markie Blackmon; Mike Craven; Kenny Guadarrama Discharging Clinician: Howard Sotomayor Patient Disposition: Home Activity: as tolerated Diet: heart healthy Discharge Instructions: patient to follow discharge care instruction from his urologist and follow up as scheduled, patient to follow up his primary care provider as soon as possible, patient is instructed if any symptoms redevelop to go to nearest ER. Patient Instructions: Antibiotic Form, Gastrointestinal Bleeding (GEN), Hematuria (GEN) Patient Language: Persian Stand Alone Forms: General Discharge Information, Work/School Release IP Follow-up/Referrals: Trevon,MD Franklin [Non-Staff] - Markie Blackmon MD [Physician] - Discharge Medications: Continued prednisone 5 mg tablet 10 mg PO DAILY pyridostigmine bromide 60 mg tablet 60 mg PO QID aspirin [Adult Aspirin Regimen] 81 mg tablet,delayed release (DR/EC) 81 mg PO DAILY montelukast 10 mg tablet 10 mg PO DAILY rosuvastatin 40 mg tablet 60 mg PO HS atenolol 25 mg tablet 25 mg PO DAILY Rx Instructions: TAKE 1 TABLET BY MOUTH EVERY DAY icosapent ethyl 1 gram capsule 2 g PO BID lisinopril 10 mg tablet 10 mg PO DAILY Qty: 90 3RF Date of admission: 12/04/24 12:56 Primary Care Provider: WenceslaoHiginio Admitting Provider: Jayaraj,Aman Attending physician on admission: Howard Sotomayor Condition: Improved
--- NOTE | 2024-12-05 13:40 | PC.NURSE ---
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
== END 2024-12-05 13:38 | disposition home or self-care (01) ==
LOC: ANHED 12:56 → ANHIMU 13:58
PROVIDERS: Urology; Admitting Provider General Practice; Emergency Provider Emergency Medicine; PCP Hospitalist; Visit Provider Family Medicine
PROC: 0TCB8ZZ Extirpation of Matter from Bladder, Via Natural or Artificial Opening Endoscopic (ICD-10-PCS; CPT 52001; principal; 2024-12-04 16:00)
DX: N30.21 Other chronic cystitis with hematuria (principal); R31.0 Gross hematuria; R33.9 Retention of urine, unspecified; I10 Essential (primary) hypertension; E78.5 Hyperlipidemia, unspecified; I25.10 Atherosclerotic heart disease of native coronary artery without angina pectoris; K21.9 Gastro-esophageal reflux disease without esophagitis; G70.00 Myasthenia gravis without (acute) exacerbation; K57.90 Diverticulosis of intestine, part unspecified, without perforation or abscess without bleeding; Z79.52 Long term (current) use of systemic steroids; Z79.82 Long term (current) use of aspirin; Z79.899 Other long term (current) drug therapy; Z87.891 Personal history of nicotine dependence; Z86.0100 Personal history of colon polyps, unspecified; Z91.81 History of falling
CPT/HCPCS: 52204; 36415; 74178; 80048; 80053; 81001; 85014; 85018; 85025; 85027; 85610; 85730; 88305; 96361; 96365; 96375; 99285; A9270; G0378; J0690; J1100; J2003; J2250; J2371; J2405; J2704; J3010; J7030; J7120; J7512; Q9967

== ENCOUNTER 2025-01-02 07:57 | Outpatient (CLI) | payer BC, SELFPAY ==
--- NOTE | ~2025-01-02 | XR_ITS ---
XR abdomen/kub 1V 01/02/2025 08:15 INDICATION: Gross hematuria TECHNIQUE: KUB COMPARISON: None FINDINGS: Bowel gas pattern is normal. There is no evidence of free air, mass, organomegaly, ascites or obstruction. No abnormal calculi are seen. The bones appear intact. IMPRESSION: 1: No acute abdominal abnormality identified. Reviewed, dictated and finalized at location A.
--- NOTE | ~2025-01-02 | CT_ITS ---
CT of the Abdomen and Pelvis: Indication: Hematuria Technique: 2.5 mm axial scans were obtained through the abdomen and pelvis prior to and following in travenous administration of 130 cc of Omnipaque 350. Dose reduction technique was used on this scan b y utilizing automated exposure control and iterative reconstruction technique. The dose-length produc t (DLP) was 2154.63 mGy-cm. COMPARISON: 12/04/2024 Findings: Scans through the lung bases are unremarkable. The liver, spleen, pancreas, gallbladder, and adrenal glands are within normal limits. Bilateral angelina l cysts are present. No definite stones identified. No evidence of aortic aneurysm. No lymphadenopat hy. No bowel obstruction or bowel wall thickening. There is no evidence to suggest acute appendicitis. Images through the pelvis were performed. Urinary bladder unremarkable. No pelvic mass seen. No ascit es. Impression: Unremarkable exam. No etiology for hematuria identified. Reviewed, dictated and finalized at [facility]. Impression: Unremarkable exam. No etiology for hematuria identified.
[2025-01-02 08:32] LABS: Estimated Glomerular Filt Rate > 60
== END 2025-01-02 07:58 | disposition home or self-care (01) ==
LOC: MICIMG 07:58
PROVIDERS: PCP Hospitalist; Visit Provider Urology
DX: R31.0 Gross hematuria (principal)
CPT/HCPCS: 74018; 74178; Q9967

== ENCOUNTER 2025-04-11 14:42 | Outpatient (CLI) | payer BC, SELFPAY ==
--- NOTE | ~2025-04-11 | CT_ITS ---
EXAMINATION: CT abdomen pelvis wo/w con DATE: 04/11/2025 15:33 INDICATION: Gross hematuria. TECHNIQUE: Computed tomography (CT) of the abdomen and pelvis was performed without and with 100 mL Omnipaque 350 intravenous contrast. Automated exposure control and iterative reconstruction technique were employed. The dose-length product was 2243.49 mGy-cm. COMPARISON: CT abdomen and pelvis 01/02/2025 FINDINGS: The visualized portions of the lung bases demonstrate minimal atelectasis. No pleural effusion. The heart size is normal. There are coronary artery calcifications. No pericardial effusion. There is diffuse hepatic steatosis. The gallbladder, spleen, pancreas, and adrenal glands are normal. Th ere are cysts in the kidneys measuring up to 2.4 cm on the left. There is a 1 mm stone in left kidney. The ureters are normal. The right ureter is not well opacified distally. The bladder is normal. There are bilateral inguinal hernias containing fat. There is diverticulosis of the colon without evidence of diverticulitis. There are no dilated loops of bowel. The appendix is normal. There are no pathologically enlarged lymph nodes. There is no free intraperitoneal fluid. There is mild thoracic and lumbar spondylosis. IMPRESSION: 1. 1 mm nonobstructing left kidney stone. Reviewed, dictated and finalized at location E.
--- NOTE | ~2025-04-11 | XR_ITS ---
EXAMINATION: XR abdomen/kub 1V DATE: 04/11/2025 15:04 INDICATION: Hematuria, gross TECHNIQUE: A supine view of the abdomen on 2 radiographs was obtained. COMPARISON: 01/02/2025 FINDINGS: Small amount of air and stool in nondilated large bowel. No abnormal calcifications identified. IMPRESSION: 1. Nonspecific abdomen with a small amount of stool. If symptoms persist or worsen, consider a short-term follow-up study or additional imaging for further assessment. Reviewed, dictated and finalized at location Q. IMPRESSION: 1. Nonspecific abdomen with a small amount of stool. If symptoms persist or worsen, consider a short-term follow-up study or additio nal imaging for further assessment.
[2025-04-11 15:13] LABS: Estimated Glomerular Filt Rate > 60
== END 2025-04-11 14:43 | disposition home or self-care (01) ==
LOC: MICIMG 14:42
PROVIDERS: PCP Hospitalist; Visit Provider Urology
DX: R31.0 Gross hematuria (principal); N20.0 Calculus of kidney
CPT/HCPCS: 74018; 74178; Q9967

== ENCOUNTER 2025-06-21 08:37 | Emergency (ER) | payer BC, SELFPAY ==
--- NOTE | ~2025-06-21 | XR_ITS ---
EXAMINATION: XR shoulder LT min 2V, 06/21/2025 9:30 OPTICIAN APPRENTICE HISTORY: LIFTING INJURY, HEARD POPPING, ANT PAIN COMPARISON: No comparisons available. Findings: No acute fracture or malalignment. No significant degenerative changes. Soft tissues unremarkable. Impression: No acute fracture or malalignment. Reviewed, dictated and finalized at location P. CIAN APPRENTICE Impression: No acute fracture or malalignment.
--- NOTE | ~2025-06-21 | XR_ITS ---
EXAMINATION: XR clavicle LT, 06/21/2025 9:35 INDEPENDENT INSURANCE ADJUSTER HISTORY: LIFTING INJURY, HEARD POPPING, ANT PAIN COMPARISON: No comparisons available. Findings: No acute fracture or malalignment. No significant degenerative changes. Soft tissues unremarkable. Impression: No acute fracture or malalignment. Reviewed, dictated and finalized at location P. PENDENT INSURANCE ADJUSTER Impression: No acute fracture or malalignment.
--- OUTSIDE RECORDS SUMMARY | 2025-06-21 08:39 | XMS_ITS | Encounter Summary ---
Author Organization [facility] Address [address] [place] [address] Phone Care Team Providers Care Skirt Panel Assembler Name Role Phone Higinio Billy MD Primary Care Provider [phone] Myrno Lawson MD Unavailable [phone] Reason for Visit * Reason Comments Medication Refill Encounter Details Date Type Department Care Team (Late st Contact Info) Description 10/20/2023 Refill [facility] - Neurology 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 Gender Identity Not on file Sexual Orientation Not on file documented as of this encounter Functional Status documented as of this encounter Mental Status * Question Answer Entry Date Author BP 130/80 10/20/2023 12:54 PM CDT Yulia Richardson I, CYBER INCIDENT RESPONDER Temp 97.3 10/20/2023 12:54 PM CDT Yulia Richardson I, CYBER INCIDENT RESPONDER Pulse 68 10/20/2023 12:54 PM CDT Yulia Richardson I, CYBER INCIDENT RESPONDER SpO2 97 10/20/2023 12:54 PM CDT Yulia Richardson CMA Weight 3299.2 10/20/2023 12:54 PM CDT Yulia Richardson CMA documented in this encounter Miscellaneous Notes * Telephone Encounter [...] Dept 05/12/23 Office Visit Myron Lawson MD [facility] Neurology [facility] 11/08/22 Office Visit Myron Lawson MD [facility] Neurology [facility] Showing recent visits within past 365 days and meeting all other requirements Future Appointments Date Type Provider Dept 11/15/23 Appointment Myron Lawson MD [facility] [place] Showing future appointments within next 90 days and meeting all other requirements documented in this encounter Plan of Treatment Upcoming Encounters Date Type Department Care Team (Late st Contact Info) Description 07/09/2025 3:00 PM INFANTRY OPERATIONS SPECIALIST Office Visit [facility] - [facility]rology - [place] [address] [place] [address] Myron Lawson MD [address] [facility] [place] [address] documented as of this encounter Visit Diagnoses Not on filedocumented in this encounter Care Teams Skirt Panel Assembler Relationship Specialty Start Date End [place] [address] PCP - General Family Medicine 11/08/22 Myron Lawson MD [address] [place] [address] Consulting Physician Neurology 05/11/23 documented as of this encounter
--- OUTSIDE RECORDS SUMMARY | 2025-06-21 08:39 | XMS_ITS | Encounter Summary ---
Author Organization [facility] Address [address] [place] [address] Phone Care Team Providers Care Administrative Job Titles Name Role Phone Frankiln Lester MD Primary Care Provider [phone] Higinio Billy MD Primary Care Provider [phone] Myron Lawson MD Unavailable [phone] Reason for Visit * Reason Comments Medication Refill Encounter Details Date Type Department Care Team (Late st Contact Info) Description 05/16/2022 Refill [facility] - Neurology [facility] [address] [place] [address] Myron Lawson MD [address] [place] [address] Medication Refill Social History Tobacco Use Types Packs/Day Years Used Date Smoking Tobacco: Never Smokeless Tobacco: Never Alcohol Use Standard Drinks/Week Comments Yes 0 (1 standard drink = 0.6 oz pur e alcohol) occasional Sex and Gender Information Value Date Recorded Sex Assigned at Not on file Legal 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 Gender Identity Not on file Sexual Orientation [...] st Contact Info) Description 07/09/2025 3:00 PM OIL 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 [facility] [place] [address] [place] [address] Myron Lawson MD [address] [place] [address] documented as of this encounter Visit Diagnoses Not on filedocumented in this encounter Care Teams Administrative Job Titles Relationship Specialty Start Date End Date Franklin Lester MD PCP - General Internal Medicine 08/13/20 11/07/22 Higinio Billy MD [address] [place] [address] PCP - General Family Medicine 11/08/22 Myron Lawson MD [address] [place] [address] Consulting Physician Neurology 05/11/23 documented as of this encounter
--- OUTSIDE RECORDS SUMMARY | 2025-06-21 08:39 | XMS_ITS | Encounter Summary ---
Author Organization [facility] Address [address] [place] [address] Phone Care Team Providers Care Booking Manager Name Role Phone Higinio Billy MD Primary Care Provider [phone] Myron Lawson MD Unavailable [phone] Reason for Visit * Reason Comments Medication Refill Encounter Details Date Type Department Care Team ([facility] Contact Info) Description 05/22/2023 Refill [facility] Neurology [facility] [address] [place] [address] Myron Lawson MD [address] [place] [address] Medication Refill Social History Tobacco Use Types Packs/Day Years Used Date Smoking Tobacco: Never Smokeless Tobacco: Never Alcohol Use Standard Drinks/Week Comments Yes 0 (1 standard drink = 0.6 oz pur e alcohol) occasional Sex and Gender Information Value Date Recorded Sex Assigned at Not on file Legal Sex Male 1:06 PM OFFICE HELPER Gender Identity Not on file Sexual Orientation Not on file COVID-19 Exposure Response Date Recorded In the last 10 days, have yo u been in contact with someone who was confirmed or suspected to have Coronavirus/COVID-19? No / Unsure 05/12/2023 3:27 PM CDT documented as of this encounter Plan of Treatment Upcoming Encounters Date Type Department Care Team ([facility] Contact Info) Description 07/09/2025 3:00 PM OFFICE HELPER Office Visit [facility] Neurology [facility] [place] [address] [place] [address] Myron Lawson MD [address] [place] [address] documented as of this encounter Visit Diagnoses Not on filedocumented in this encounter Care Teams Booking Manager Relationship Specialty Start Date End Date Higinio Billy MD [address] [place] [address] PCP - General Family Medicine 11/08/22 Myron Lawson MD [address] [place] [address] Consulting Physician Neurology 05/11/23 documented as of this encounter
--- OUTSIDE RECORDS SUMMARY | 2025-06-21 08:39 | XMS_ITS | Encounter Summary ---
Author Organization [facility] Address [address] [place] [address] Phone Care Team Providers Care Health Program Specialist Name Role Phone Higinio Billy MD Primary Care Provider [phone] Myron Lawson MD Unavailable [phone] Reason for Visit * Reason Comments Medication Refill Encounter Details Date Type Department Care Team (Late st Contact Info) Description 05/13/2023 Refill [facility] - Neurology [facility] [address] [place] [address] Myron Lawson MD [address] [place] [address] Medication Refill Social History Tobacco Use Types Packs/Day Years Used Date Smoking Tobacco: Never Smokeless Tobacco: Never Alcohol Use Standard Drinks/Week Comments Yes 0 (1 standard drink = 0.6 oz pur e alcohol) occasional Sex and Gender Information Value Date Recorded Sex Assigned at Not on file Legal Sex Male 1:06 PM SEO PROFESSIONAL Gender Identity Not on file Sexual Orientation [...] Dept 05/12/23 Office Visit Myron Lawson MD [facility] Neurology [facility] 11/08/22 Office Visit Myron Lawson MD [facility] Neurology [facility] Showing recent visits within past 365 days and meeting all other requirements Future Appointments No visits were found meeting these conditions. Showing future appointments within next 90 days and meeting all other requirements documented in this encounter Plan of Treatment Upcoming Encounters Date Type Department Care Team (Late st Contact Info) Description 07/09/2025 3:00 PM SEO PROFESSIONAL [facility] [address] [place] [address] Myron Lawson MD [address] [place] [address] documented as of this encounter Visit Diagnoses Not on filedocumented in this encounter Care Teams Health Program Specialist Relationship Specialty Start Date End Date [place] [address] PCP - General Family Medicine 11/08/22 Myron Lawson MD [address] [place] [address] Consulting Physician Neurology 05/11/23 documented as of this encounter
--- OUTSIDE RECORDS SUMMARY | 2025-06-21 08:40 | XMS_ITS | Encounter Summary ---
Author Organization [facility] Address [address] [place] [address] Phone Care Team Providers Care Stars Analytical Lead Name Role Phone Higinio Billy MD Primary Care Provider [phone] Myron Lawson MD Unavailable [phone] Reason for Visit * Reason Comments Medication Refill Encounter Details Date Type Department Care Team (Late Contact Info) Description 03/[facility] [address] [place] [address] Myron Lawson MD [address] [place] [address] Medication Refill Social History Tobacco Use Types Packs/Day Years Used Date Smoking Tobacco: Never Smokeless Tobacco: Never Alcohol Use Standard Drinks/Week Comments Yes 0 (1 standard drink = 0.6 oz pur e alcohol) occasional Sex and Gender Information Value Date Recorded Sex Assigned at Not on file Legal Sex Male 1:06 PM HYDROLOGIC MODELER Gender Identity Not on file Sexual Orientation Not on file documented as of this encounter Plan of Treatment Upcoming Encounters Date Type Department Care Team (Late Contact Info) Description 07/09/2025 3:00 PM HYDROLOGIC MODELER Office Visit [facility] [address] [place] [address] Myron Lawson MD [address] [place] [address] documented as of this encounter Visit Diagnoses Diagnosis Myasthenia gravis Myasthenia gravis without exacerbation documented in this encounter Care Teams Stars Analytical Lead Relationship Specialty Start Date End Date Higinio Billy MD [address] [place] [address] PCP - General Family Medicine 11/08/22 Myron Lawson MD [address] [place] [address] Consulting Physician Neurology 05/11/23 documented as of this encounter
--- OUTSIDE RECORDS SUMMARY | 2025-06-21 08:40 | XMS_ITS | Encounter Summary ---
Author Organization [facility] Address [address] [place] [address] Phone Care Team Providers Care Homemaker Companion Name Role Phone Higinio Billy MD Primary Care Provider [phone] Myron Lawson MD Unavailable [phone] Reason for Visit * Reason Comments Medication Refill Encounter Details Date Type Department Care Team (Late st Contact Info) Description 07/22/2023 Refill [facility] - Neurology [facility] [address] [place] [address] Myron Lawson MD [address] [place] [address] Medication Refill Social History Tobacco Use Types Packs/Day Years Used Date Smoking Tobacco: Never Smokeless Tobacco: Never Alcohol Use Standard Drinks/Week Comments Yes 0 (1 standard drink = 0.6 oz pur e alcohol) occasional Sex and Gender Information Value Date Recorded Sex Assigned at Not on file Legal Sex Male 1:06 PM MIXING AND DISPENSING SUPERVISOR Gender Identity Not on file Sexual [...] Dept 05/12/23 Office Visit Myron Lawson MD [facility] Neurology [facility] 11/08/22 Office Visit Myron Lawson MD [facility] Neurology [facility] Showing recent visits within past 365 days and meeting all other requirements Future Appointments No visits were found meeting these conditions. Showing future appointments within next 90 days and meeting all other requirements NG AND DISPENSING SUPERVISOR documented in this encounter Plan of Treatment Upcoming Encounters Date Type Department Care Team (Late st Contact Info) Description 07/09/2025 3:00 PM MIXING AND DISPENSING SUPERVISOR [facility] [address] [place] [address] Myron Lawson MD [address] [place] [address] documented as of this encounter Visit Diagnoses Not on filedocumented in this encounter Care Teams Homemaker Companion Relationship Specialty Start Date End Date Higinio Billy MD [address] [place] [address] PCP - General Family Medicine 11/08/22 Myron Lawson MD [address] [place] [address] Consulting Physician Neurology 05/11/23 documented as of this encounter
--- OUTSIDE RECORDS SUMMARY | 2025-06-21 08:40 | XMS_ITS | Encounter Summary ---
Author Organization [facility] Address [address] [place] [address] Phone Care Team Providers Care Cert Pharmacy Tech Name Role Phone Higinio Billy MD Primary Care Provider [phone] Myron Lawson MD Unavailable Reason for Visit * Reason Comments Medication Refill Encounter Details Date Type Department Care Team (Late Contact Info) Description [facility] [address] [place] [address] Myron Lawson MD [address] [place] [address] Medication Refill Social History Tobacco Use Types Packs/Day Years Used Date Smoking Tobacco: Never Smokeless Tobacco: Never Alcohol Use Standard Drinks/Week Comments Yes 0 (1 standard drink = 0.6 oz pur e alcohol) occasional Sex and Gender Information Value Date Recorded Sex Assigned at Not on file Legal Sex Male 1:06 PM USER EXPERIENCE DESIGNER Gender Identity Not on file Sexual Orientation Not on file documented as of this encounter Plan of Treatment Upcoming Encounters Date Type Department Care Team (Late Contact Info) Description 07/09/2025 3:00 PM USER EXPERIENCE DESIGNER Office Visit [facility] [address] [place] [address] Myron Lawson MD [address] [place] [address] documented as of this encounter Visit Diagnoses Not on filedocumented in this encounter Care Teams Cert Pharmacy Tech Relationship Specialty Start Date End Date Higinio Billy MD [address] [place] [address] PCP - General Family Medicine 11/08/22 Myron Lawson MD [address] [place] [address] Consulting Physician Neurology 05/11/23 documented as of this encounter
--- OUTSIDE RECORDS SUMMARY | 2025-06-21 08:40 | XMS_ITS | Clinical Summary ---
Author Organization [facility] Address [address] [place] [address] Phone Care Team Providers Care Membership Advisor Name Role Phone Higinio Billy MD Primary Care Provider [phone] Myron Lawson MD Unavailable [phone] Allergies No known active allergies Medications atenolol [...] 500 PO) Take by mouth. Activ e Icosapent Ethyl 1 g Capsule Take by mouth. 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 Gender Identity Not on file Sexual Orientation Not on file Last Filed Vital Signs Vital Sign Reading Time Taken Comments Blood Pressure 130/80 01/07/2025 3:51 PM CDT Pulse 71 01/07/2025 3:51 PM CDT Temperature 36.4 C (97.6 F) 01/07/2025 3:51 PM CDT Respiratory Rate 17 01/07/2025 3:51 PM CDT Oxygen Saturation 97% 01/07/2025 3:51 PM CDT Inhaled Oxygen Concentration - - Weight 93.4 kg (205 lb 12.8 oz) 01/07/2025 3:51 PM CDT Height 172.7 cm (5' 8) 01/07/2025 3:51 PM CDT Body Mass Index 31.29 01/07/2025 3:51 PM CDT Plan of Treatment Upcoming Encounters Date Type Department Care Team (Late st Contact Info) Description 07/09/2025 3:00 PM SCHOOL BUSINESS ADMINISTRATOR Office Visit [facility] [address] [place] [address] Myron Lawson MD [address] [place] [address] Health Maintenance Due Date Last Done Comments Hepatitis C Virus (HCV) Screening 1965 TdaP Immunization 1965 Hepatitis B Immunization (1 of 3 - 19+ 3-dose series) 1984 Cologuard 2010 Immunochemical Fecal Occult Blood 2010 Pneumococcal Immunization (50+ years) (1 of 1 - PCV) 10/11/2015 Respiratory Syncytial Virus (RSV) Immunization (Adult) (1 - Risk 50-74 years 1-dose series) 10/11/2015 Zoster Immunization (1 of 2) 10/11/2015 PSA Discussion 2020 Influenza Immunization (#1) 04/01/202505/01, 04/21/2023, 07/13/2022, Additional history exists SARS-COV-2 Immunization (2024- season) 2025 05/22/2022, 05/31/2021, 10/14/2020, Additional history exists Colonoscopy 07/02/2032 07/02/2022 Colorectal Cancer Screening 07/02/2032 Human Papillomavirus (HPV) Immunization Aged Out No longer eligible based on patient's age to complete this topic Meningococcal Immunization (ACWY) Aged Out No longer eligible based on patient's age to complete this topic Rotavirus Immunization Aged Out No lo nger eligible based on patient's age to complete this topic Insurance [facility] Care Teams Membership Advisor Relationship Specialty Start Date End Date Higinio Billy MD [address] [place] [address] PCP - General Family Medicine 11/08/22 Myron Lawson MD [address] [place] [address] Consulting Physician Neurology 05/11/23
--- OUTSIDE RECORDS SUMMARY | 2025-06-21 08:40 | XMS_ITS | Encounter Summary ---
Author Organization [facility] Address [address] [place] [address] Care Team Providers Care Stroke Coordinator Name Role Phone Franklin Lester MD Unavailable [phone] Higinio Billy MD Primary Care Provider [phone] Encounter Details Date Type Department Care Team (Late st Contact Info) Description 04/23/2025 Results [facility] [address] [place] [address] Higinio Billy MD [address] [place] [address] SCAN - RADIOLOGY/IMAGING Social History Tobacco Use Types Packs/Day Years Used Date Smoking Tobacco: Former Smokeless Tobacco: Never Alcohol Use Standard Drinks/Week Comments Not Currently 0 (1 standard drink = 0.6 oz pur e alcohol) [facility] Utilities Answer Date Recorded In the past 12 months has [facility] [employer], gas, oil, or water [employer] threatened to shut off services in your [...] or ex-partner? No 07/12/2023 Social Connection and Isolation Panel Answer Date Recorded In a typical week, how many times do you talk on the phone with family, friends, or neighbors? More than three times a week 07/12/2023 How often do you get togethe r with friends or relatives? More than three times a week 07/12/2023 How often do you attend chur or baptist services? 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
--- OUTSIDE RECORDS SUMMARY | 2025-06-21 08:40 | XMS_ITS | Clinical Summary ---
Author Organization [facility] Address [address] [place] [address] Care Team Providers Care Linoleum Tile Layer Name Role Phone Tee Marcano MD Unavailable [phone] Source Comments [facility],non-owned Affiliates and Associated Physician Practices is amultiple site organization consisting of ambulatory clinics and hospital sitesin [place], [place], [place] and [place]. This disclosure is being madepursuant to the Care Everywhere program and may not contain all information available regarding this patient. 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 Not on file Not on file Not on file Last Filed Vital Signs Vital Sign Reading Time Taken Comments Blood Pressure - - Pulse - - Temperature - - Respiratory Rate - - Oxygen Saturation - - Inhaled Oxygen Concentration - - Weight 83 kg (183 lb) 06/28/2011 2:05 PM CARTON FORMING MACHINE TENDER Height 172.7 cm (5' 8) 06/28/2011 2:05 PM CARTON FORMING MACHINE TENDER Body Mass Index 27.83 06/28/2011 2:05 PM CARTON FORMING MACHINE TENDER Plan of Treatment Health Maintenance Due Date [...] 10/11/2015 ZOSTER VACCINE (1 of 2) 10/11/2015 DEPRESSION SCREENING 08/01/2024 COVID-19 VACCINE (1 - 2024-2 6 season) 2025 INFLUENZA VACCINE (#1) 2025 HIB VACCINE Aged Out No longer [...] patient's age to complete this topic Insurance [facility] SELF PAY NO INSURANCE Member Subscriber Plan / Payer (Ef fective for All Dates) Name:Isidro Pierson Member ID:Not on file Relation to Subscriber:Not on file Name:ISIDRO PIERSON Subscriber ID:Not on file (Home) Address: [address] [place] [address] Payer ID:Not on file Group ID:Not on file Type:Self Pay Address: [facility] Care Teams Linoleum Tile Layer Relationship Specialty Start Date End Date Tee Marcano MD Internal Medicine 06/28/11
--- OUTSIDE RECORDS SUMMARY | 2025-06-21 08:41 | XMS_ITS | Clinical Summary ---
Author Organization [facility] [address] Address [address] [place] [address] Care Team Providers Care Foreman Shipping Department Name Role Phone Franklin Lester MD Unavailable [phone] Higinio Billy MD Primary Care Provider [phone] Allergies No known active allergies Medications pyridostigmine (MESTINON) 60 mg tablet 4 (four) times a day Active aspirin 81 mg enteric coated tablet Take 1 tablet (81 mg total) by mouth daily Active fluticasone propionate (FLONASE) 50 mcg/actuation nasal spray Administer 2 sprays into each nostril daily 3 each 4 023 Active Additional Information Patient taking differently:2 spray each nostrilAs needed, Reported on 01/23/2025 calcium carbonate 500 mg calcium (1,250 mg) capsule Take by mouth daily Active icosapent ethyL (VASCEPA) 1 gram capsule TAKE 2 CAPSULES BY MOUTH 2 TIMES A DAY. 180 capsule 3 025 Active rosuvastatin (CRESTOR) 40 mg tabletIndications :Essential hypertension,Suhas nary artery disease involving jamul coronary artery of jamul heart without angina pectoris,Mixed hyperlipidemia TAKE 1 TABLET BY MOUTH EVERY DAY 90 tablet 1 025 Active atenoloL (TENORMIN) 25 mg tabletIndications :Essential hypertension,Suhas nary artery disease involving jamul coronary artery of jamul heart without angina pectoris,Mixed hyperlipidemia TAKE 1 TABLET (25 MG TOTAL) BY MOUTH DAILY. 90 tablet 1 025 Active lisinopriL (PRINIVIL,ZESTRIL ) 10 mg tabletIndications :Essential hypertension,Suhas nary artery disease involving jamul coronary artery of jamul heart without angina pectoris,Mixed hyperlipidemia TAKE 1 TABLET BY MOUTH EVERY DAY 90 tablet 1 025 Active montelukast (SINGULAIR) 10 mg tablet TAKE 1 TABLET BY MOUTH EVERY DAY 90 tablet 3 025 Active montelukast (SINGULAIR) 10 mg tablet Take 1 tablet (10 mg total) by mouth daily 90 tablet 3 024 2024 Discontinued Active Problems Problem Noted Date Diagnosed Date Screening for diabetes mellitus 07/13/2024 Screening for malignant neoplasm of prostate Screening for thyroid disorder 07/13/2024 Class 1 obesity with serious comorbidity and body mass index (BMI) of 32.0 to 32.9 in adult 07/13/2024 Assessment & Plan (07/13/2024 4:09 PM NUCLEAR SPECTROSCOPIST): BMI 32.60. Discussed need for healthy diet, [...] loss Assessment & Plan (07/12/2023 1:36 PM NUCLEAR SPECTROSCOPIST): Patient continues to gain weight; limited ability exercise due to myasthenia gravis, limiting as energy levels in the evening Patient on chronic prednisone for myasthenia gravis Will start semaglutide 0.25 mg to help with weight control Nausea, vomiting, and diarrhea 01/18/2023 Assessment & Plan (01/18/2023 11:23 AM CDT): Nine history of abdominal pain and N/V/D Obtain x-ray at [facility]-will call with results Myasthenia gravis 01/03/2023 Assessment & Plan (02/08/2025 12:40 PM CDT): Stable, well controlled; no major symptoms; good relief with current medications Continue pyridostigmine 60 mg q.i.d.; prednisone 10 mg b.i.d. Assessment & Plan (01/11/2024 2:57 PM CDT): Stable, well controlled; has taper down to 5 mg prednisone daily; pyridostigmine 60 mg q.i.d.; continue to monitor Patient reports worsening symptoms associated with feet, tries to stay in air conditioning as much as possible Assessment & Plan (10/05/2023 12:35 PM NUCLEAR SPECTROSCOPIST): Had episode of weakness and collapse, improvement with methylprednisone Symptoms are now improving after fall Continue pyridostigmine 60 mg q.i.d., can taper down stabilizes Assessment & Plan (07/12/2023 1:36 PM NUCLEAR SPECTROSCOPIST): Stable, generally well controlled, the patient does [...] 11/2022 Assessment & Plan (07/13/2024 4:15 PM NUCLEAR SPECTROSCOPIST): Continue use of fluticasone. Assessment & Plan (01/03/2023 3:10 PM CDT): Stable, generally well controlled; continue Singulair 10 mg daily, Benadryl p.r.n. Flonase 2 sprays each nostril nightly H/O heart artery stent 12/09/2022 Mixed hyperlipidemia 12/09/2022 Assessment & Plan (02/08/2025 12:41 PM CDT): Stable, well controlled, lipids at goal Continue Vascepa 2 g b.i.d.; rosuvastatin 40 mg daily Assessment & Plan (01/03/2023 3:09 PM CDT): Stable, well controlled, follows with Cardiology Continue rosuvastatin 40 mg daily Coronary artery disease 05/29/2020 Assessment & Plan (07/13/2024 4:20 PM NUCLEAR SPECTROSCOPIST): Stable. Continue ASA, atenolol, lisinopril, rosuvastatin, and Vascepa. Followed by cardiology. Assessment & Plan (01/11/2024 2:57 PM CDT): Stable, well controlled, continue ASA 81 mg daily, atenolol 25 mg daily, rosuvastatin 40 mg daily Assessment & Plan (10/05/2023 12:35 PM NUCLEAR SPECTROSCOPIST): Stable, well controlled; no chest pain or evidence of cardiac enzymes Continue ASA 81 mg daily, atenolol 25 mg daily, lisinopril 10 mg daily, rosuvastatin 40 mg daily Assessment & Plan (07/12/2023 1:35 PM NUCLEAR SPECTROSCOPIST): Stable, well controlled; no chest pain headaches, [...] 05/06/2020 Essential hypertension 05/06/2020 Assessment & Plan (02/08/2025 12:40 PM CDT): Stable, well controlled, blood pressure at goal; no chest pain pressure orthostatics To lisinopril 10 mg; atenolol 25 mg daily Assessment & Plan (01/11/2024 2:56 PM CDT): Stable, well controlled, blood pressure at goal No chest pain or pressure No orthostatics Continue atenolol 25 mg daily, lisinopril 10 mg daily Assessment & Plan (07/12/2023 1:34 PM NUCLEAR SPECTROSCOPIST): Mildly elevated today; though blood pressure generally [...] neck Assessment & Plan (07/12/2023 1:35 PM NUCLEAR SPECTROSCOPIST): Generally well controlled, no major issues, has [...] daily Assessment & Plan (07/12/2023 1:35 PM NUCLEAR SPECTROSCOPIST): Stable, well controlled; mildly elevated triglycerides, LDL at goal Continue rosuvastatin 40 mg daily Encounters Date Type Department Care Team Description 06/19/2025 Telephone [facility] [address] [place] [address] Higinio Billy MD Additional Services Or Orders 04/23/2025 Results Follow-Up [facility] [place] [address] [place] [address] Higinio Billy MD SCAN - RADIOLOGY/IMAGING 04/11/2025 Orders Only [facility] Information [facility] [address] [place] [address] Higinio Billy MD from Last 3 Months Immunizations Immunization Administration Dates Next Due Influenza, Quadrivalent, Spl it, Preservative Free, Intramuscular 07/13/2022,05/31/2021,05/17/2020,04/26 Influenza, Trivalent, Preser vative Free, Intramuscular 05/17/2024,05/23/2013 Influenza, Unspecified 04/21/2023 Surgical History Surgery Date Site/Laterality Comments TENODESIS BICEPS TENDON AT ELBOW Bilateral THYROIDECTOMY 08/01/1999 - 07/31/2000 N/A COLONOSCOPY BLADDER SURGERY 12/04/2024 [facility] Medical History Medical History Date Comments Chest [...] drink = 0.6 oz pur e alcohol) [facility] Utilities Answer Date Recorded In the past 12 months has [facility] [employer], gas, oil, or water [employer] threatened to shut off services in your [...] 07/12/2023 How often do you attend chur ch or anglican services? Never 07/12/2023 Do you belong to any clubs o r organizations such as jew groups, unions, fraternal or athletic groups, or [...] staff should administer the PHQ-9) 0 01/23/2025 [facility]at [facility] - Occupational Stress Questionnaire Answer Date Recorded [...] place to sleep or slept in a retirement (including now)? No 07/12/2023 Sex and Gender Information Value Date Recorded Sex Assigned at Not on file Legal Sex Male 1:56 AM NUCLEAR SPECTROSCOPIST Gender Identity Not on file Sexual Orientation Not on file Last Filed Vital Signs Vital Sign Reading Time Taken Comments Blood Pressure 120/70 01/23/2025 12:00 PM CDT Pulse 60 01/23/2025 12:00 PM CDT Temperature 36.6 C (97.8 F) 01/23/2025 12:00 PM CDT Respiratory Rate 18 01/23/2025 12:00 PM CDT Oxygen Saturation 98% 01/23/2025 12:00 PM CDT Inhaled Oxygen Concentration - - Weight 92.1 kg (203 lb) 01/23/2025 12:00 PM CDT Height 170.2 cm (5' 7) 01/23/2025 12:00 PM CDT Body Mass Index 31.79 01/23/2025 12:00 PM CDT Plan of Treatment Health Maintenance Due Date Last Done Comments DTaP/Tdap/Td Vaccine (1 - Tdap) 1976 Regular Well Visit/Exam 18-64 10/11/1983 Covid-19 Vaccine ( season) 2025 05/22/2022, 05/31/2021, 10/14/2020, Additional history exists Influenza Vaccine (#1) 2025 , 04/21/2023, 07/13/2022, Additional history exists Zoster Vaccine (1 of 2) 07/13/2025 Post poned from 10/11/2015 (Patient declined, but will receive in the future) Depression Screening 01/23/2026 01/23/2025, 01/11/2024, 07/12/2023, Additional history exists Prostate Cancer Screening-PSA 07/13/2026 07/13/2024, 07/12/2023 Colon Cancer Screening-Colonoscopy 07/02/2027 07/02/2022 Colon Cancer Screening-CT Colonography Discontinued 07/02/2022 Colon Cancer Screening-DNA Stool Discontinued 07/02/2022 Colon Cancer Screening-FIT Discontinued 07/02/2022 Colon Cancer Screening-Sigmoidoscopy Discontinued 07/02/2022 Hepatitis B Screening Completed 01/01/2025 Hepatitis C Screening Completed 01/01/2025, 024 Pneumococcal vaccine <65 Aged Out No longer eligible based on patient's age to complete this topic Procedures Procedure Name Priority Date/Time Associated Diagnosis Comments SCAN - RADIOLOGY/IMAGING 04/11/2025 HEPATITIS C ANTIBODY Routine 01/01/2025 8:15 AM CDT PSA SCREEN Routine 07/13/2024 9:13 AM NUCLEAR SPECTROSCOPIST Screening for malignant neoplasm of prostate COLONOSCOPY Routine 07/02/2022 from Last 3 Months or Most Recently Relevant to Health Maintenance Results * SCAN - RADIOLOGY/IMAGING (04/11/2025) Anatomical Region Laterality Modality Other us Higinio Billy MD Final Res ult * Hepatitis C antibody (01/01/2025 8:15 AM CDT) Hep C Ab NON-REACTI VE NON-REACT GAYE [facility] Comment: HCV antibody was non-reactive. There is no laboratory evidence of HCV infection. In most cases, no further action is required. However, if recent HCV exposure is suspected, a test for HCV RNA (test code 43025) is suggested. For additional information please refer to http://education.[employer]/faq/RLH18i0 (This link is being provided for informational/ educational purposes only.) 01/01/2025 8:15 AM CDT 01/01/2025 8:17 AM CDT Narrative [facility] - 01/02/2025 3:43 AM CDT FASTING:YES FASTING: YES Higinio Billy MD LAB MICROBIOLOGY - GENERA L ORDERABLES Final Result [facility] [address] [place] [address] * PSA screen (07/13/2024 9:13 AM NUCLEAR SPECTROSCOPIST) PSA-Total 2.82 <=3.90 ng/mL Comment: Interpretive Data [...] last revised 21. Blood 07/13/2024 9:13 AM NUCLEAR SPECTROSCOPIST 07/13/2024 2:37 PM NUCLEAR SPECTROSCOPIST Result [facility] Yulia Mcguire NP LAB BLOOD ORDERABLES Final Re sult [facility] [address] Department [place] [address] * Colonoscopy (07/02/2022) Anatomical Region Laterality Modality Other Result [facility] Historical Provider ENDOSCOPY PROCEDURES Asha l Result from Last 3 Months or Most Recently Relevant to Health Maintenance Insurance [facility] FEDERAL Member Subscriber Plan / Payer (Ef fective 2022-Present) Name:Isidro Pierson Relation to Subscriber:Spouse Name:Stefany Pierson Date of :1960 (Home) Address: [facility] [address] [place] [address] Payer ID:[id number] (NAIC) Group ID:[id number] Type:BC ALLIANCE Address: [address] [place] [id number] Care Teams Foreman Shipping Department Relationship Specialty Start Date End Date Higinio Billy MD [address] [place] [address] PCP - General Family Medicine 12/09/22 Franklin Lester MD Internal Medicine 05/06/20
[2025-06-21 09:00] VITALS: BP 140/80; PULSE 56; RESP 18; TEMP 36.8; O2SAT 98
--- NOTE | 2025-06-21 09:11 | ED.UPPEXIN ---
HPI - Extremity Injury (Upper) General Chief Complaint: Extremity Injury, Upper Stated Complaint: left shoulder injury Time Seen by Provider: 06/21/25 09:23 Source: patient and RN notes reviewed Mode of arrival: ambulatory Limitations: no limitations History of Present Illness HPI narrative: 59-year-old male presents with concern for left shoulder pain. He reports lifting something heavy while repairing a car yesterday when he felt a pop in his left shoulder. Reports pain, reports a lump. Reports difficulty raising the arm above shoulder level. Reports pain with range of motion. Reports he took 2 extra-strength Tylenol this morning without any pain relief. He denies decreased sensation, range of motion, strength in the lower arm, hand, digits MD complaint: injury to: left and shoulder Related Data Home Medications ?Medication ?Instructions ?Recorded ?Confirmed ?Last Taken ?Type prednisone 5 mg tablet 10 mg PO DAILY 07/13/19 12/04/24 12/04/24 History pyridostigmine bromide 60 mg tablet 60 mg PO QID 07/13/19 12/04/24 12/04/24 History aspirin 81 mg tablet,delayed 81 mg PO DAILY 04/08/20 12/04/24 12/04/24 History release (Adult Aspirin Regimen) atenolol 25 mg tablet 25 mg PO DAILY 06/16/22 12/04/24 12/04/24 History montelukast 10 mg tablet 10 mg PO DAILY 06/16/22 12/04/24 12/04/24 History rosuvastatin 40 mg tablet 60 mg PO HS 06/16/22 12/04/24 12/03/24 History icosapent ethyl 1 gram capsule 2 g PO BID 12/04/24 12/04/24 12/04/24 History Allergies Allergy/AdvReac Type Severity Reaction Status Date / Time No Known Allergies Allergy Verified 06/21/25 09:32 Review of Systems Review of Systems: CONSTITUTIONAL: Denies malaise, chills, sweats, or fever. SKIN: Denies rash or itching, open skin, laceration, abrasion, redness, warmth MUSCULOSKELETAL: Reports left shoulder pain NEUROLOGIC: Denies numbness, weakness All systems reviewed & are unremarkable except as noted in HPI and below PMFSH Past Medical History Medical History GI bleed Pneumonia GERD (gastroesophageal reflux disease) History of rectal polyps Diverticulosis Myasthenia gravis Headache, migraine Hyperlipidemia Hypertension Surgical History Surgical History H/O colonoscopy removing rectal polyps History of thymectomy History of elbow surgery History of surgery on right wrist H/O right knee surgery Family History Family History Father Rheumatoid arthritis Heart disease Mother Hypertension Heart disease Social History Social History Years smoked: 3 Smoking status: Former smoker Tobacco type: cigarettes Alcohol intake: current Drinks per week: 20 Substance use: never Substance use type: does not use Do You Feel Safe in your Home?: Yes Lack of Transportation: No Lack of Food: Never True Current Housing: I Have Housing Concerned About Future Housing: No Difficulty Paying Gas/Electric Bills: No Difficulty Paying for Meds: No Currently Unemployed: No Education: High School Diploma/GED Difficulty w/ Childcare or Family Care: No Living arrangements: with family Spiritual care concerns: No Comments At time of signature, agree with nursing past medical, surgical, social and family history. There is no relevant family history pertinent to the presenting complaint Exam Narrative: GENERAL: Well-appearing, well-nourished, and in no acute distress. HEAD: Normocephalic, atraumatic. EYES: PERRLA, conjunctivae clear NECK: Supple. CHEST: Speaks in full sentences. No respiratory distress. HEART: Regular rate and rhythm. Normal and equal peripheral pulses. EXTREMITIES: Left shoulder has grossly normal strength and sensation, range of motion limited with full abduction and extension. No edema or ecchymosis.Normal sensation with sensitivity to light touch and pain. Tenderness noted at the acromioclavicular joint. No open wounds, no skin tenting, no devitalized tissue or atrophy, no trophic changes, no obvious deformity, alignment normal, nearby joints and structures intact. Distal pulses palpable and equal bilaterally, skin warm, dry, pink. Capillary refill less than 3 seconds. SKIN: Warm, dry, no rash. NEURO: Alert and oriented x3. PSYCH: Normal mood and affect Course Course Emergency Course: Patient is aware of diagnosis, understands and agrees to treatment plan. Anticipatory guidance given. Patient agrees to follow-up as directed and is aware of reasons to seek care at the emergency department. Portions of this record may have been created with voice recognition software Level of Care: Express Care Visit Vital Signs Vital signs: Reviewed. MDM - Extremity Injury (Upper) MDM Narrative Medical decision making narrative: Patients injury and pain is consistent with musculoskeletal etiology. No signs of neurological or vascular compromise on exam. Compartments and tissues are soft without signs of compartment syndrome. Pain is felt appropriate for further evaluation on an outpatient basis. Imaging Data My impression: Images reviewed, interpreted by radiologist, agree, see report. Radiologist's impression: EXAMINATION: XR shoulder LT min 2V, 06/21/2025 9:30 QUALITY TECH HISTORY: LIFTING INJURY, HEARD POPPING, ANT PAIN COMPARISON: No comparisons available. Findings: No acute fracture or malalignment. No significant degenerative changes. Soft tissues unremarkable. Impression: No acute fracture or malalignment. EXAMINATION: XR clavicle LT, 06/21/2025 9:35 QUALITY TECH HISTORY: LIFTING INJURY, HEARD POPPING, ANT PAIN COMPARISON: No comparisons available. Findings: No acute fracture or malalignment. No significant degenerative changes. Soft tissues unremarkable. Impression: No acute fracture or malalignment. Critical Care Time Critical Care Time Critical Care Time: No Discharge Plan Discharge Clinical Impression: Acute shoulder pain Patient Disposition: Home Condition: Stable Instructions: Shoulder Sprain (ED) Additional Instructions: Avoid activities that cause pain until the pain subsides. Ice to the area 20-30 minutes 4-6 times a day Use sling as directed Tylenol for lesser pain Ibuprofen regularly for the next 2-3 days for the inflammation Follow up with your primary care provider if the condition is not improving within 1 week. If the condition worsens with numbness, tingling, decrease sensation with weakness seek treatment in the emergency room immediately. Patient Language: Georgian Prescriptions: New hydrocodone-acetaminophen 5-325 mg tablet 1 tablet PO Q6H PRN (Reason: pain) Qty: 10 0RF No Action prednisone 5 mg tablet 10 mg PO DAILY pyridostigmine bromide 60 mg tablet 60 mg PO QID aspirin [Adult Aspirin Regimen] 81 mg tablet,delayed release (DR/EC) 81 mg PO DAILY montelukast 10 mg tablet 10 mg PO DAILY rosuvastatin 40 mg tablet 60 mg PO HS atenolol 25 mg tablet 25 mg PO DAILY Rx Instructions: TAKE 1 TABLET BY MOUTH EVERY DAY icosapent ethyl 1 gram capsule 2 g PO BID lisinopril 10 mg tablet 10 mg PO DAILY Qty: 90 3RF Follow-up/Referrals: Wenceslao,MD Higinio [Primary Care Provider, Unknown] Don Fleming MD [Physician, Orthopedics] Time of Disposition: 10:03
== END 2025-06-21 10:14 | disposition home or self-care (01) ==
PROVIDERS: Emergency Provider Nurse Practitioner; PCP Hospitalist
DX: M25.512 Pain in left shoulder (principal); I10 Essential (primary) hypertension; E78.5 Hyperlipidemia, unspecified; G70.00 Myasthenia gravis without (acute) exacerbation; K21.9 Gastro-esophageal reflux disease without esophagitis; Z79.82 Long term (current) use of aspirin
CPT/HCPCS: 73000; 73030; 99213; A4565; G0463